=== PATIENT | female | born 1960 ===

== ENCOUNTER 2018-03-10 02:39 | Emergency (ER) | payer MEDICAID ==
[2018-03-10 02:39] VITALS: BMI 26.9
[2018-03-10 03:15] VITALS: TEMP 98.2
[2018-03-10 03:18] VITALS: RESP 18
[2018-03-10] MEDS ORDERED: Sodium Chloride 0.9% 1,000 ML IV STA (03:26)
[2018-03-10 03:46] LABS: BASO % 0.8 % (0.0-2.0); EOS # 0.1 K/uL (0.0-0.7); EOS % 2.9 % (0.0-4.0); HEMOGLOBIN 12.7 g/dL (12.0-16.0); LYMPH # 1.8 K/uL (1.0-4.3); LYMPH % 57.5 % (20.0-40.0); MEAN CORPUSCULAR HEMOGLOBIN 30.5 pg (27.0-31.0); MEAN PLATELET VOLUME 7.9 fl (7.2-11.7); MONO # 0.3 K/uL (0.0-0.8); MONO % 10.1 % (0.0-10.0); NEUT # 0.9 K/uL (1.8-7.0); NEUT % 28.7 % (50.0-75.0); NRBC % 0.2 % (0.0-0.0); RBC 4.17 Mil/uL (3.80-5.20); RED CELL DISTRIBUTION WIDTH 13.4 % (11.5-14.5); WHITE BLOOD COUNT 3.1 K/uL (4.8-10.8)
[2018-03-10 03:54] LABS: ALB/GLOB RATIO 1.3 (1.0-2.1); ALBUMIN 3.9 g/dL (3.5-5.0); ALT/SGPT 31 U/L (9-52); AST/SGOT 28 U/L (14-36); BLOOD UREA NITROGEN 13 mg/dl (7-17); CALCIUM 9.8 mg/dL (8.4-10.2); GFR AFRICAN-AMERICAN > 60; GFR NON-AFRICAN AMERICAN > 60; LIPASE 62 U/L (23-300)
--- NOTE | 2018-03-10 05:02 | ED PDOC ---
HPI: Chest Pain Time Seen by Provider: 03/10/18 03:10 Chief Complaint (Nursing): Chest Pain Chief Complaint (Provider): Chest Pain and Abdominal Pain History Per: Patient History/Exam Limitations: no limitations Onset/Duration Of Symptoms: Days (x 1) Associated Symptoms: Nausea Additional Complaint(s): 57 years old female with osteoporosis presents to the ED with complaints of chest pain and abdominal pain associated with headache, nausea and vomiting. Patient reports she awoke with abdominal pain that radiated to her chest. She admits experiencing 2 episodes of non-bloody/bilious vomiting. Patient denies any shortness of breath or cough. PMD:Any [place] Past Medical History Reviewed: Historical Data, Nursing Documentation, Vital Signs Vital Signs: Last Vital Signs Temp 98.2 F 03/10/18 03:12 Pulse 82 03/10/18 03:12 Resp 18 03/10/18 03:12 BP 137/56 L 03/10/18 03:12 Pulse Ox 100 03/10/18 05:17 - Medical History PMH: Hypercholesterolemia, Hyperlipidemia, Osteoporosis Denies: Chronic Kidney Disease - Surgical History Surgical History: No Surg Hx - Family History Family History: States: Unknown Family Hx - Social History Current smoker - smoking cessation education provided: No Alcohol: None Drugs: Denies - Immunization History Hx Tetanus Toxoid Vaccination: No Hx Influenza Vaccination: No Hx Pneumococcal Vaccination: No - Home Medications Home Medications: Ambulatory Orders Medication Instructions Recorded Alendronate [Fosamax] 1 tab PO WM 06/15/16 Calcium Carbonate/Vitamin D3 1 tab PO DAILY 06/15/16 [Oysco 500-Vit D3 200 Tablet] Simvastatin 40 mg PO HS 06/15/16 Acetaminophen with Codeine 1 tab PO Q6 PRN #20 tab 12/22/16 [Tylenol with Codeine No. 3 300 mg-30 mg] Clindamycin [Cleocin] 300 mg PO QID #28 cap 12/22/16 Esomeprazole Magnesium [Nexium] 20 mg PO QAM #30 ecc 03/10/18 Ondansetron ODT [Zofran ODT] 4 mg PO Q6 PRN #8 odt 03/10/18 - Allergies Allergies/Adverse Reactions: Allergies Allergy/AdvReac Type Severity Reaction Status Date / Time ampicillin Allergy RASH Verified 06/15/16 09:26 Penicillins Allergy RASH Verified 06/15/16 07:14 Review of Systems ROS Statement: Except As Marked, All Systems Reviewed And Found Negative Cardiovascular: Positive for: Chest Pain Respiratory: Negative for: Cough, Shortness of Breath Gastrointestinal: Positive for: Nausea, Vomiting (non bloody/bilious), Abdominal Pain Neurological: Positive for: Headache Physical Exam - Reviewed Nursing Documentation Reviewed: Yes Vital Signs Reviewed: Yes - Physical Exam Appears: Positive for: Non-toxic, No Acute Distress Skin: Positive for: Normal Color, Warm, Dry Eye Exam: Positive for: Normal appearance, EOMI, PERRL ENT: Positive for: Normal ENT Inspection Neck: Positive for: Normal, Painless ROM, Supple Cardiovascular/Chest: Positive for: Regular Rate, Rhythm. Negative for: Murmur Respiratory: Positive for: Normal Breath Sounds. Negative for: Respiratory Distress Gastrointestinal/Abdominal: Positive for: Tenderness (mild epigastric) Back: Positive for: Normal Inspection Extremity: Positive for: Normal ROM. Negative for: Pedal Edema, Deformity Neurologic/Psych: Positive for: Alert, Oriented - Laboratory Results Result Diagrams: 03/10/18 03:43 03/10/18 03:43 - ECG O2 Sat by Pulse Oximetry: 100 (RA) Pulse Ox Interpretation: Normal Medical Decision Making Medical Decision Making: Time: 325 Initial Impression: 57 years old female with abdominal pain, nausea and vomiting. Initial Plan: --EKG --CMP --Lipase --Troponin --CBC --Famotidine 20 mg IV --NaCl 1,000 ml IV --Reglan 10 mg IVPB Time: 0514 Labs reviewed and show no significant abnormality. Patient reports marked improvement of symptoms. Patient is stable for discharge and instructed to follow up with the clinic and Dr. Pratt in 2-3 days. Scribe Attestation: Documented by Tasia Davis, acting as a scribe for Saurabh Hernandez MD. Provider Scribe Attestation: All medical record entries made by the Scribe were at my direction and personally dictated by me. I have reviewed the chart and agree that the record accurately reflects my personal performance of the history, physical exam, medical decision making, and the department course for this patient. I have also personally directed, reviewed, and agree with the discharge instructions and disposition. Disposition - Clinical Impression Clinical Impression: Gastritis, GERD (gastroesophageal reflux disease) - Disposition Disposition: Routine/Home Disposition Time: 05:14 Condition: STABLE Prescriptions: Esomeprazole Magnesium [Nexium] 20 mg PO QAM #30 ecc Ondansetron ODT [Zofran ODT] 4 mg PO Q6 PRN #8 odt PRN Reason: Nausea/Vomiting Instructions: Gastritis, Acid Reflux (Gastroesophageal Reflux Disease) in Adults Forms: [facility] (Spanish) Print Language: NIUEAN
[2018-03-10 05:33] VITALS: BP 111/74; PULSE 59; O2SAT 96
--- NOTE | 2018-03-13 11:15 | CARD ---
APPROVED REPORT EKG Measurement Heart [id number] <Conclusion> Normal sinus rhythm Possible Left atrial enlargement Borderline ECG
== END 2018-03-10 05:39 | disposition home or self-care (01) ==
LOC: H.ER 02:39
DX: K21.9 Gastro-esophageal reflux disease without esophagitis (principal); K29.70 Gastritis, unspecified, without bleeding; E78.00 Pure hypercholesterolemia, unspecified; M81.0 Age-related osteoporosis without current pathological fracture; Z88.0 Allergy status to penicillin
CPT/HCPCS: 80053; 83690; 84484; 85025; 96365; 96375; 99283; J2765; J7040

== ENCOUNTER 2018-03-28 16:50 | Observation (INO) | payer MEDICAID ==
[2018-03-28 16:50] VITALS: BMI 26.9
[2018-03-28] MEDS ORDERED: Sodium Chloride 0.9% 1,000 ML IV STA (17:28)
--- NOTE | 2018-03-28 17:34 | ED PDOC ---
HPI: Chest Pain Time Seen by Provider: 03/28/18 17:02 Chief Complaint (Nursing): Chest Pain Chief Complaint (Provider): chest pain and abdominal pain History Per: Patient History/Exam Limitations: no limitations Onset/Duration Of Symptoms: Days (x1) Current Symptoms Are (Timing): Still Present Quality: "Pain" Associated Symptoms: Other (headache, abdominal pain) Additional Complaint(s): Sue Tomlinson is a 57 year old female, with a past medical history of hypercholesterolemia, who presents to the emergency department complaining of a mild frontal headache, chest pain and epigastric pain associated with generalized body weakness onset since last night. Patient states headache is not the worst in her life and reports pain radiates from her chest down to her abdomen. Patient reports similar abdominal pain in the past and is currently taking Bentyl. She denies any fever, chills, neck pain, vision changes, cough, congestion, runny nose, shortness of breath, dizziness, numbness or tingling, weakness, dysuria, nausea, vomit, or diarrhea. No further medical complaints. PMD: Ismael Carrillo Past Medical History Reviewed: Historical Data, Nursing Documentation, Vital Signs Vital Signs: Last Vital Signs Temp 98.0 F 03/28/18 16:58 Pulse 65 03/28/18 20:08 Resp 18 03/28/18 20:08 BP 116/73 03/28/18 20:08 Pulse Ox 100 03/28/18 20:08 - Medical History PMH: Hypercholesterolemia, Hyperlipidemia, Osteoporosis Denies: Chronic Kidney Disease - Surgical History Surgical History: No Surg Hx - Family History Family History: States: Unknown Family Hx - Immunization History Hx Tetanus Toxoid Vaccination: No Hx Influenza Vaccination: No Hx Pneumococcal Vaccination: No - Home Medications Home Medications: Ambulatory Orders Medication Instructions Recorded Alendronate [Fosamax] 1 tab PO WM 06/15/16 Calcium Carbonate/Vitamin D3 1 tab PO DAILY 06/15/16 [Oysco 500-Vit D3 200 Tablet] Simvastatin 40 mg PO HS 06/15/16 Acetaminophen with Codeine 1 tab PO Q6 PRN #20 tab 12/22/16 [Tylenol with Codeine No. 3 300 mg-30 mg] Clindamycin [Cleocin] 300 mg PO QID #28 cap 12/22/16 Esomeprazole Magnesium [Nexium] 20 mg PO QAM #30 ecc 05/19/18 Ondansetron ODT [Zofran ODT] 4 mg PO Q6 PRN #8 odt 03/10/18 - Allergies Allergies/Adverse Reactions: Allergies Allergy/AdvReac Type Severity Reaction Status Date / Time ampicillin Allergy RASH Verified 03/28/18 16:58 Penicillins Allergy RASH Verified 03/28/18 16:58 Review of Systems ROS Statement: Except As Marked, All Systems Reviewed And Found Negative Constitutional: Positive for: Weakness (generalized body). Negative for: Fever , Chills Eyes: Negative for: Vision Change ENT: Negative for: Nose Discharge, Nose Congestion Cardiovascular: Positive for: Chest Pain Respiratory: Negative for: Cough, Shortness of Breath Gastrointestinal: Positive for: Abdominal Pain (epigastric). Negative for: Nausea, Vomiting, Diarrhea Genitourinary Female: Negative for: Dysuria Musculoskeletal: Negative for: Neck Pain Neurological: Positive for: Headache (mild frontal). Negative for: Weakness, Numbness (or tingling), Dizziness Physical Exam - Reviewed Nursing Documentation Reviewed: Yes Vital Signs Reviewed: Yes - Physical Exam Appears: Positive for: Non-toxic Head Exam: Positive for: ATRAUMATIC, NORMOCEPHALIC Skin: Positive for: Normal Color, Warm, Dry Eye Exam: Positive for: Normal appearance, EOMI, PERRL ENT: Positive for: Normal ENT Inspection Neck: Positive for: Painless ROM, Supple Cardiovascular/Chest: Positive for: Regular Rate, Rhythm. Negative for: Murmur Respiratory: Positive for: Normal Breath Sounds. Negative for: Respiratory Distress Gastrointestinal/Abdominal: Positive for: Tenderness (mild epigastric) Back: Negative for: L CVA Tenderness, R CVA Tenderness, Vertebral Tenderness Extremity: Positive for: Normal ROM (upper and lower extremities). Negative for : Deformity, Swelling Neurologic/Psych: Positive for: Alert, Oriented. Negative for: Motor/Sensory Deficits - Laboratory Results Result Diagrams: 03/28/18 18:21 03/28/18 20:00 Interpretation Of Abn Labs: no acute - ECG ECG: Positive for: Interpreted By Me, Viewed By Me ECG Rhythm: Positive for: Normal QRS, Normal ST Segment, Sinus Rhythm O2 Sat by Pulse Oximetry: 99 (RA) Pulse Ox Interpretation: Normal - Radiology X-Ray: Interpreted by Me, Viewed By Me X-Ray Interpretation: No Acute Disease - CT Scan/US ct Other Rad Studies (CT/US): Read By Radiologist Other Rad Interpretation: no acute - Progress ED Course And Treament: 2055: Spoke with [facility] resident. Will admit tele obs. AAOx3. Will need further eval as pt. has risk factors for ACS. No pain currently. Medical Decision Making Medical Decision Making: Time: 17:02 Initial Impression: abdominal pain Initial Plan: --Head w/o contrast [CT] --EKG --CMP --Lipase --Troponin I --CBC w/ differential --PTT --PT --Chest portable [RAD] --Aspirin 325mg PO --Sodium Chloride 1,000 ml IV 1,000 mls/hr --Pepcid 20 mg IVP --Reevaluation 18:[address] FINDINGS: HEMORRHAGE: No intracranial hemorrhage. BRAIN: No mass effect or edema. No atrophy or chronic microvascular ischemic changes. VENTRICLES: Unremarkable. No hydrocephalus. CALVARIUM: Unremarkable. PARANASAL SINUSES: Unremarkable as visualized. No significant inflammatory changes. MASTOID AIR CELLS: Unremarkable as visualized. No inflammatory changes. OTHER FINDINGS: None. IMPRESSION: No acute intracranial hemorrhage. ----- Scribe Attestation: Documented by Eduard Hernández, acting as a scribe for Lucas Soto MD. Provider Scribe Attestation: All medical record entries made by the Scribe were at my direction and personally dictated by me. I have reviewed the chart and agree that the record accurately reflects my personal performance of the history, physical exam, medical decision making, and the department course for this patient. I have also personally directed, reviewed, and agree with the discharge instructions and disposition. Disposition - Clinical Impression Clinical Impression: Chest pain - Patient ED Disposition Is Patient to be Admitted: Yes Counseled Patient/Family Regarding: Studies Performed, Diagnosis - Disposition Disposition Time: 20:12 Condition: FAIR - Pt Status Changed To: Hospital Disposition Of: Observation - POA Present On Arrival: None
[2018-03-28] MEDS ORDERED: Famotidine 20mg/50ml 20 MG/50 ML BAG IVPB ONE ×2 (18:06→18:15)
[2018-03-28 18:41] LABS: BASO # 0.1 K/uL (0.0-0.2); BASO % 1.1 % (0.0-2.0); EOS % 0.9 % (0.0-4.0); HEMOGLOBIN 12.2 g/dL (12.0-16.0); LYMPH # 2.4 K/uL (1.0-4.3); LYMPH % 49.5 % (20.0-40.0); MEAN CELL VOLUME 89.2 fl (81.0-99.0); MEAN CORPUSCULAR HEMOGLOBIN 29.1 pg (27.0-31.0); MEAN CORPUSCULAR HGB CONC 32.6 g/dL (33.0-37.0); MEAN PLATELET VOLUME 8.9 fl (7.2-11.7); MONO # 0.4 K/uL (0.0-0.8); MONO % 8.8 % (0.0-10.0); NEUT # 1.9 K/uL (1.8-7.0); NEUT % 39.7 % (50.0-75.0); NRBC % 0.2 % (0.0-0.0); RBC 4.19 Mil/uL (3.80-5.20); RED CELL DISTRIBUTION WIDTH 13.8 % (11.5-14.5); WHITE BLOOD COUNT 4.8 K/uL (4.8-10.8)
--- NOTE | 2018-03-28 18:46 | CT ---
PROCEDURE: CT HEAD WITHOUT CONTRAST. HISTORY: Headache COMPARISON: No prior study available for comparison TECHNIQUE: Axial computed tomography images were obtained through the head/brain without intravenous contrast. Radiation dose: Total exam DLP = 617.19 mGy-cm. This CT exam was performed using one or more of the following dose reduction techniques: Automated exposure control, adjustment of the mA and/or kV according to patient size, and/or use of iterative reconstruction technique. FINDINGS: HEMORRHAGE: No intracranial hemorrhage. BRAIN: No mass effect or edema. No atrophy or chronic microvascular ischemic changes. VENTRICLES: Unremarkable. No hydrocephalus. CALVARIUM: Unremarkable. PARANASAL SINUSES: Unremarkable as visualized. No significant inflammatory changes. MASTOID AIR CELLS: Unremarkable as visualized. No inflammatory changes. OTHER FINDINGS: None. IMPRESSION: No acute intracranial hemorrhage.
[2018-03-28 18:50] LABS: PARTIAL THROMBOPLASTIN TIME 32.3 Seconds (25.6-37.1); PROTHROMBIN TIME 11.1 Seconds (9.8-13.1)
[2018-03-28 20:25] LABS: ALB/GLOB RATIO 1.1 (1.0-2.1); ALBUMIN 3.7 g/dL (3.5-5.0); ALT/SGPT 19 U/L (9-52); AST/SGOT 47 U/L (14-36); BLOOD UREA NITROGEN 12 mg/dl (7-17); CALCIUM 8.9 mg/dL (8.4-10.2); GFR AFRICAN-AMERICAN > 60; GFR NON-AFRICAN AMERICAN > 60; LIPASE 71 U/L (23-300)
[2018-03-28] MEDS ORDERED: Morphine 4 MG/ML VIAL ONE (21:08)
--- NOTE | 2018-03-28 21:40 | CP.PCM.HP ---
History of Present Illness - History of Present Illness History of Present Illness: 57 yr old F presents to ED with complaint of chest pain, headache and body weakness x 1 day. PMHx includes GERD and hyperlipidemia controlled without medication. Patient reports similar symptoms in the past with ED visit on . Chest pain is in proximal sternum radiating to epigastric area, 01/30, "pain ". Denies fever, chills, nausea, vomiting, diarrhea, one sided weakness or numbness, decreased appetite. Reports taking aspirin 81mg this morning which exacerbated her symptoms. Nothing alleviated her symptoms. She is tolerating PO diet, has normal urine output, denies dysuria or hematuria. Headache is frontal , intermittent, 03/01, she did not take anything to alleviate her headache. PMD: [facility], Dr. Carrillo (last visit 02/15/18) PMHx: GERD, hyperlipidemia (controlled without medication) SurgHx: x 2 FMHx: mother from liver cancer, father had CAD and first CT at age 60 SocHx: denies Etoh/tobacco or drugs Medications: Omeprazole 40mg PO QD, calcium 500mg PO BID Allergies: Penicillin, ampicillin (rash and syncope) ED course: BP 131/70 mmHg, HR 69, Resp 16, O2 sat 99% on room air, Temp 98.0 F -EKG: NSR at rate of 63 bpm, no significant ST-T changes -CBC: WBC 4.8. H/H 12.2/37.4, plts 255 -CMP: Na 139, K+ 4.4, Cl 108, HCO3 20, BUN/Cr 12/0.6, AST 47, ALT 19 -PT 11.1, PTT 32.3, INR 1.0 -troponin: < 0.0120 -lipase: 71 -CXR: preliminary : no active disease -Head CT: no ICH -ED tx: Aspirin 325mg PO once, Famotidine 20mg IV once, Morphine 4mg IV once, NS 1L bolus once Present on Admission - Present on Admission Any Indicators Present on Admission: No History of DVT/PE: No History of Uncontrolled Diabetes: No Urinary Catheter: No Decubitus Ulcer Present: No History Surgical Site Infection Following: None Review of Systems - Constitutional Constitutional: absent: Anorexia - EENT Eyes: absent: Change in Vision Ears: absent: Ear Discharge, Dizziness Nose/Mouth/Throat: absent: Nasal Congestion, Nasal Discharge, Sore Throat, Facial Pain - Cardiovascular Cardiovascular: Chest Pain at Rest. absent: Chest Pain with Activity, Dyspnea, Edema, Rapid Heart Rate, Syncope - Respiratory Respiratory: absent: Cough, Hemoptysis - Gastrointestinal Gastrointestinal: Heartburn. absent: Abdominal Pain, Constipation, Nausea, Vomiting - Genitourinary Genitourinary: absent: Dysuria, Hematuria - Musculoskeletal Musculoskeletal: Other (overall body weakness) - Neurological Neurological: absent: Confusion, Disequilibrium, Dizziness, Numbness - Psychiatric Psychiatric: absent: Homicidal Ideation, Suicidal Ideation - Endocrine Endocrine: absent: Polydipsia, Polyphagia, Polyuria - Hematologic/Lymphatic Hematologic: absent: Easy Bleeding, Easy Bruising Past Patient History - Past Medical History & Family History Past Medical History?: Yes - Past Social History Smoking Status: Never Smoked Alcohol: None Drugs: Denies Home Situation {Lives}: With Family Domestic Violence: Negative - CARDIAC Hx Hypercholesterolemia: Yes - PULMONARY Hx Respiratory Disorders: No - NEUROLOGICAL Hx Neurological Disorder: No - HEENT Hx HEENT Problems: No - RENAL Hx Chronic Kidney Disease: No - ENDOCRINE/METABOLIC Hx Endocrine Disorders: No - HEMATOLOGICAL/ONCOLOGICAL Hx Blood Disorders: No - INTEGUMENTARY Hx Dermatological Problems: No - MUSCULOSKELETAL/RHEUMATOLOGICAL Hx Osteoporosis: Yes - GENITOURINARY/GYNECOLOGICAL Hx Genitourinary Disorders: No - PSYCHIATRIC Hx Psychophysiologic Disorder: No Hx Substance Use: No - SURGICAL HISTORY Hx Surgeries: Yes Hx Section: Yes (x2) - ANESTHESIA Hx Anesthesia: Yes Hx Anesthesia Reactions: No Hx Malignant Hyperthermia: No Meds Allergies/Adverse Reactions: Allergies Allergy/AdvReac Type Severity Reaction Status Date / Time ampicillin Allergy RASH Verified 03/28/18 16:58 Penicillins Allergy RASH Verified 03/28/18 16:58 Physical Exam - Constitutional Appears: Well, Non-toxic, No Acute Distress - Head Exam Head Exam: ATRAUMATIC, NORMOCEPHALIC - Eye Exam Eye Exam: EOMI, PERRL - ENT Exam ENT Exam: Mucous Membranes Moist - Neck Exam Neck exam: Positive for: Full Rom. Negative for: Lymphadenopathy - Respiratory Exam Respiratory Exam: Clear to Auscultation Bilateral, NORMAL BREATHING PATTERN. absent: Rhonchi, Wheezes - Cardiovascular Exam Cardiovascular Exam: REGULAR RHYTHM, +S1, +S2 Additional comments: reproducible chest pain: proximal sternal area tender to palpation - GI/Abdominal Exam GI & Abdominal Exam: Normal Bowel Sounds, Soft. absent: Tenderness - Extremities Exam Extremities exam: Positive for: full ROM. Negative for: calf tenderness, joint swelling, pedal edema, tenderness - Back Exam Back exam: absent: CVA tenderness (L), CVA tenderness (R) - Neurological Exam Neurological exam: Alert, CN II-XII Intact (grossly), Oriented x3 - Psychiatric Exam Psychiatric exam: Normal Affect, Normal Mood - Skin Skin Exam: Dry, Intact, Normal Color, Warm Results - Vital Signs Recent Vital Signs: Last Vital Signs Temp 98.0 F 03/28/18 16:58 Pulse 65 03/28/18 20:08 Resp 18 03/28/18 20:08 BP 116/73 03/28/18 20:08 Pulse Ox 99 03/28/18 20:58 - Labs Result Diagrams: 03/28/18 18:21 03/28/18 20:00 Labs: Laboratory Results - last 24 hr 03/28/18 03/28/18 03/28/18 18:21 18:21 20:00 WBC 4.8 D RBC 4.19 Hgb 12.2 Hct 37.4 MCV 89.2 D MCH 29.1 MCHC 32.6 L RDW 13.8 Plt Count 255 MPV 8.9 Neut % (Auto) 39.7 L Lymph % (Auto) 49.5 H [place] % (Auto) 8.8 Eos % (Auto) 0.9 Baso % (Auto) 1.1 Neut # (Auto) 1.9 Lymph # (Auto) 2.4 [place] # (Auto) 0.4 Eos # (Auto) 0.0 Baso # (Auto) 0.1 PT 11.1 INR 1.0 APTT 32.3 Sodium 139 Potassium 4.4 Chloride 108 H Carbon Dioxide 20 L Anion Gap 15 BUN 12 Creatinine 0.6 L Est GFR ( Amer) > 60 Est GFR (Non-Af Amer) > 60 Random Glucose 87 Calcium 8.9 Total Bilirubin 0.6 AST 47 H D ALT 19 Alkaline Phosphatase 90 Troponin I < 0.0120 Total Protein 7.2 Albumin 3.7 Globulin 3.5 Albumin/Globulin Ratio 1.1 Lipase 71 Assessment & Plan - Assessment and Plan (Free Text) Assessment: 57 yr old F admitted for recurrent chest pain. 1. Chest pain -recurrent, rule out ACS vs GERD exacerbation vs costochondritis vs anxiety -EKG NSR, troponin negative, CBC/CMP lipase negative -admit to tele -f/u serial troponin -heart healthy diet 2. GERD -chronic -Pantoprazole 40mg PO QD 3. DVT prophylaxis -SCD's -Lovenox 40mg SC QD - Date & Time Date: 03/28/18 Time: 21:20
[2018-03-29] MEDS ORDERED: Pneumococcal 23-Valent Vaccine IM ONE (05:00)
[2018-03-29 08:06] VITALS: RESP 20; TEMP 97.6
[2018-03-29] MEDS ORDERED: Pantoprazole 40 mg EC Tab PO SCH (09:00)
[2018-03-29] MEDS ORDERED: Enoxaparin 40 mg Syringe SC SCH (09:00)
--- NOTE | 2018-03-29 09:12 | RAD ---
HISTORY: dyspnea COMPARISON: Chest radiograph dated 12/16/2014 FINDINGS: LUNGS: No active pulmonary disease. PLEURA: No significant pleural effusion identified, no pneumothorax apparent. CARDIOVASCULAR: Normal. OSSEOUS STRUCTURES: Unchanged. VISUALIZED UPPER ABDOMEN: Normal. OTHER FINDINGS: None. IMPRESSION: No active disease.
[2018-03-29 12:31] VITALS: BP 110/63; PULSE 62; O2SAT 99
--- NOTE | 2018-03-29 13:50 | CP.PCM.DIS ---
Provider - Provider Date of Admission: 03/28/18 20:56 Attending physician: Gege Gonsales MD Time Spent in preparation of Discharge (in minutes): 20 Hospital Course - Lab Results Lab Results: Most Recent Lab Values WBC 4.8 K/uL (4.8-10.8) D 03/28/18 18:21 RBC 4.19 Mil/uL (3.80-5.20) 03/28/18 18:21 Hgb 12.2 g/dL (12.0-16.0) 03/28/18 18:21 Hct 37.4 % (34.0-47.0) 03/28/18 18:21 MCV 89.2 fl (81.0-99.0) D 03/28/18 18:21 MCH 29.1 pg (27.0-31.0) 03/28/18 18:21 MCHC 32.6 g/dL (33.0-37.0) L 03/28/18 18:21 RDW 13.8 % (11.5-14.5) 03/28/18 18: Plt Count 255 K/uL (130-400) 03/28/18 18:21 MPV 8.9 fl (7.2-11.7) 03/28/18 18:21 Neut % (Auto) 39.7 % (50.0-75.0) L 03/28/18 18:21 Lymph % (Auto) 49.5 % (20.0-40.0) H 03/28/18 18:21 [place] % (Auto) 8.8 % (0.0-10.0) 03/28/18 18:21 Eos % (Auto) 0.9 % (0.0-4.0) 03/28/18 18:21 Baso % (Auto) 1.1 % (0.0-2.0) 03/28/18 18:21 Neut # (Auto) 1.9 K/uL (1.8-7.0) 03/28/18 18:21 Lymph # (Auto) 2.4 K/uL (1.0-4.3) 03/28/18 18:21 [place] # (Auto) 0.4 K/uL (0.0-0.8) 03/28/18 18:21 Eos # (Auto) 0.0 K/uL (0.0-0.7) 03/28/18 18:21 Baso # (Auto) 0.1 K/uL (0.0-0.2) 03/28/18 18:21 PT 11.1 Seconds (9.8-13.1) 03/28/18 18:21 INR 1.0 (0.9-1.2) 03/28/18 18:21 APTT 32.3 Seconds (25.6-37.1) 03/28/18 18:21 Sodium 139 mmol/l (132-148) 03/28/18 20:00 Potassium 4.4 MMOL/L (3.6-5.0) 03/28/18 20:00 Chloride 108 mmol/L (98-107) H 03/28/18 20:00 Carbon Dioxide 20 mmol/L (22-30) L 03/28/18 20:00 Anion Gap 15 (10-20) 03/28/18 20:00 BUN 12 mg/dl (7-17) 03/28/18 20:00 Creatinine 0.6 mg/dl (0.7-1.2) L 03/28/18 20:00 Est GFR ( Amer) > 60 03/28/18 20:00 Est GFR (Non-Af Amer) > 60 03/28/18 20:00 Random Glucose 87 mg/dL (65-105) 03/28/18 20:00 Calcium 8.9 mg/dL (8.4-10.2) 03/28/18 20:00 Total Bilirubin 0.6 mg/dl (0.2-1.3) 03/28/18 20:00 AST 47 U/L (14-36) H D 03/28/18 20:00 ALT 19 U/L (9-52) 03/28/18 20:00 Alkaline Phosphatase 90 U/L (38-126) 03/28/18 20:00 Troponin I < 0.0120 ng/mL (0.00-0.120) 03/29/18 05:00 Total Protein 7.2 G/DL (6.3-8.2) 03/28/18 20:00 Albumin 3.7 g/dL (3.5-5.0) 03/28/18 20:00 Globulin 3.5 gm/dL (2.2-3.9) 03/28/18 20:00 Albumin/Globulin Ratio 1.1 (1.0-2.1) 03/28/18 20:00 Lipase 71 U/L (23-300) 03/28/18 20:00 - Hospital Course Hospital Course: 57 YO female with PMH of HLD (diet controlled) and GERD was admitted for chest pain, r/o ACS. On exam, chest pain was likely 2/2 to GERD, ACS ruled out, all work up is negative; EKG no acute ST changes, vitals signs wnl, trops neg x 2, CT head wnl. Chest pain has resolved at this time. Pt d/c home with follow up in [facility] with Dr. Carrillo, 04/03/18 @ 3:40. Continue Meds: Continue Nexium PO daily (on a empty stomach, 20mins before meals) Discharge Exam - Head Exam Head Exam: ATRAUMATIC, NORMOCEPHALIC - Eye Exam Eye Exam: EOMI, Normal appearance - ENT Exam ENT Exam: Mucous Membranes Moist - Respiratory Exam Respiratory Exam: Clear to PA & Lateral, NORMAL BREATHING PATTERN. absent: Wheezes - Cardiovascular Exam Cardiovascular Exam: REGULAR RHYTHM, +S1, +S2 - GI/Abdominal Exam GI & Abdominal Exam: Normal Bowel Sounds, Soft. absent: Tenderness - Extremities Exam Extremities exam: full ROM, normal inspection - Back Exam Back exam: NORMAL INSPECTION - Neurological Exam Neurological exam: Alert, CN II-XII Intact, Oriented x3 - Psychiatric Exam Psychiatric exam: Normal Affect, Normal Mood - Skin Skin Exam: Dry, Intact, Normal Color, Warm Discharge Plan - Follow Up Plan Condition: FAIR Disposition: HOME/ ROUTINE Patient education suggested?: Yes Instructions: Chest Pain (DC) Additional Instructions: /Follow up in [facility] with Dr. Carrillo on 04/03/18 at 3:40pm Referrals: [facility] [Outside]
--- NOTE | 2018-03-29 17:20 | CARD ---
APPROVED REPORT EKG Measurement Heart [id number] <Conclusion> Normal sinus rhythm Possible Left atrial enlargement Borderline ECG
== END 2018-03-29 15:12 | disposition home or self-care (01) ==
LOC: H.ER 16:50 → H.ERHOLD 20:56 → H.TEL 23:01
PROVIDERS: ADMIT Family Medicine Geriatric Medicine; ATTEND Family Medicine Geriatric Medicine
DX: K21.9 Gastro-esophageal reflux disease without esophagitis (principal); E78.00 Pure hypercholesterolemia, unspecified; E78.5 Hyperlipidemia, unspecified; M81.0 Age-related osteoporosis without current pathological fracture; R07.9 Chest pain, unspecified; Z88.0 Allergy status to penicillin; Z23 Encounter for immunization
CPT/HCPCS: 36415; 70450; 71045; 80053; 83690; 84484; 85025; 85610; 85730; 90471; 90732; 93005; 96360; 96365; 99285; G0378; J1650; J2270; J7030

== ENCOUNTER 2018-04-04 00:24 | Emergency (ER) | payer MEDICAID ==
[2018-04-04 00:25] VITALS: BMI 26.9
[2018-04-04 00:49] VITALS: TEMP 97.8; O2SAT 100
[2018-04-04] MEDS ORDERED: Alum-Mag Hydrox-Simethicone Susp (30 mL) ONE (01:20)
[2018-04-04] MEDS: Alum-Mag Hydrox-Simethicone Susp (30 mL) PO STA (01:37)
--- NOTE | 2018-04-04 01:40 | ED PDOC ---
HPI: Abdomen Time Seen by Provider: 04/04/18 00:48 Chief Complaint (Nursing): Abdominal Pain Chief Complaint (Provider): Abdominal Pain History Per: Patient History/Exam Limitations: no limitations Onset/Duration Of Symptoms: Hrs (x1) Outside of [place] travel?: No Current Symptoms Are (Timing): Still Present Location Of Pain/Discomfort: Epigastric Associated Symptoms: Nausea, Chest Pain. denies: Vomiting Additional History Per: Prior Records Additional Complaint(s): 57 year old female presents to ED with complaints of abdominal pain x1 hour and has a past medical history of gastritis and GERD. Patient notes that she awoke with epigastric pain and chest discomfort. (+) nausea, (-) vomiting. Of note, patient was seen for the same complain on 03/10/18 as well as on 03/28/18 , for which she was admitted as chest pain OBS. Patient notes she is scheduled for an appointment at the clinic. PCP: Ismael Carrillo Past Medical History Reviewed: Historical Data, Nursing Documentation, Vital Signs Vital Signs: Last Vital Signs Temp 97.8 F 04/04/18 00:41 Pulse 77 04/04/18 00:41 Resp 18 04/04/18 00:41 BP 135/75 04/04/18 00:41 Pulse Ox 100 04/04/18 01:46 - Medical History PMH: Gastritis, GERD, Hypercholesterolemia, Hyperlipidemia, Osteoporosis Denies: No Chronic Diseases, Chronic Kidney Disease - Surgical History Surgical History: No Surg Hx - Family History Family History: States: Unknown Family Hx - Social History Current smoker - smoking cessation education provided: No Ex-Smoker (has not smoked in the last 12 months): No Alcohol: None Drugs: Denies - Immunization History Hx Tetanus Toxoid Vaccination: No Hx Influenza Vaccination: No Hx Pneumococcal Vaccination: No - Home Medications Home Medications: Ambulatory Orders Medication Instructions Recorded Esomeprazole Magnesium [Nexium] 20 mg PO QAM #30 ecc 03/10/18 Esomeprazole Magnesium [Nexium] 40 mg PO DAILY #28 ecc 04/04/18 - Allergies Allergies/Adverse Reactions: Allergies Allergy/AdvReac Type Severity Reaction Status Date / Time ampicillin Allergy RASH Verified 04/04/18 00:41 Penicillins Allergy RASH Verified 04/04/18 00:41 Review of Systems ROS Statement: Except As Marked, All Systems Reviewed And Found Negative Cardiovascular: Positive for: Chest Pain (chest discomfort) Gastrointestinal: Positive for: Nausea, Abdominal Pain (epigastric). Negative for: Vomiting Physical Exam - Reviewed Nursing Documentation Reviewed: Yes Vital Signs Reviewed: Yes - Physical Exam Appears: Positive for: Non-toxic, No Acute Distress Skin: Positive for: Normal Color, Warm, Dry Cardiovascular/Chest: Positive for: Regular Rate, Rhythm. Negative for: Murmur Respiratory: Positive for: Normal Breath Sounds. Negative for: Respiratory Distress Gastrointestinal/Abdominal: Positive for: Soft, Tenderness (epigastric tenderness) Neurologic/Psych: Positive for: Alert, Oriented. Negative for: Motor/Sensory Deficits - Laboratory Results Result Diagrams: 04/04/18 01:43 04/04/18 01:43 - ECG O2 Sat by Pulse Oximetry: 100 (RA) Pulse Ox Interpretation: Normal Medical Decision Making Medical Decision Makin Initial impression: 57 year old female with epigastric pain in setting of known GERD and gastritis Initial plan: * Labs * Lipase * UPreg * Maalox Plus 30mL PO * Protonix Inj 40mg IV * Zofran Inj 4mg IV * UA * Re-eval 0349 Upon re-evaluation patient notes improvement in symptoms. Labs reviewed: no clinically significant abnormalities. Patient confirms she has an appointment later today with PMD Dr. Carrillo in the clinic. Patient is stable for discharge home. Dx: GERD, gastritis Condition: improved Scribe Attestation: Documented by Myrna Bruce acting as a scribe for Saurabh Hernandez MD. Scribe Attestation: All medical record entries made by the Scribe were at my direction and personally dictated by me. I have reviewed the chart and agree that the record accurately reflects my personal performance of the history, physical exam, medical decision making, and the department course for this patient. I have also personally directed, reviewed, and agree with the discharge instructions and disposition. Disposition - Clinical Impression Clinical Impression: GERD (gastroesophageal reflux disease) - Disposition Referrals: Ismael Carrillo MD [Primary Care Provider] - Disposition Time: 03:45 Condition: IMPROVED Prescriptions: Esomeprazole Magnesium [Nexium] 40 mg PO DAILY #28 ecc Instructions: Acid Reflux (Gastroesophageal Reflux Disease) in Adults Forms: [employer] (Gambian) Print Language: SAMMARINESE
[2018-04-04 01:54] LABS: BASO % 0.8 % (0.0-2.0); EOS # 0.1 K/uL (0.0-0.7); EOS % 1.9 % (0.0-4.0); HEMOGLOBIN 12.8 g/dL (12.0-16.0); LYMPH # 1.6 K/uL (1.0-4.3); LYMPH % 40.6 % (20.0-40.0); MEAN CELL VOLUME 87.9 fl (81.0-99.0); MEAN CORPUSCULAR HEMOGLOBIN 29.5 pg (27.0-31.0); MEAN CORPUSCULAR HGB CONC 33.5 g/dL (33.0-37.0); MEAN PLATELET VOLUME 8.5 fl (7.2-11.7); MONO # 0.4 K/uL (0.0-0.8); MONO % 9.8 % (0.0-10.0); NEUT # 1.8 K/uL (1.8-7.0); NEUT % 46.9 % (50.0-75.0); NRBC % 0.1 % (0.0-0.0); RBC 4.33 Mil/uL (3.80-5.20); RED CELL DISTRIBUTION WIDTH 13.7 % (11.5-14.5); WHITE BLOOD COUNT 3.9 K/uL (4.8-10.8)
[2018-04-04 01:55] LABS: SQUAMOUS EPITHIAL < 1 /hpf (0-5); URINE BACTERIA RARE (<OCC); URINE BILIRUBIN NEGATIVE (NEGATIVE); URINE BLOOD NEGATIVE (NEGATIVE); URINE CLARITY CLEAR (Clear); URINE COLOR COLORLESS (YELLOW); URINE GLUCOSE (UA) NEG (Normal); URINE LEUKOCYTE ESTERASE NEG Leu/uL (Negative); URINE PROTEIN NEGATIVE (NEGATIVE); URINE UROBILINOGEN 0.2-1.0 mg/dL (0.2-1.0)
[2018-04-04 02:05] LABS: ALB/GLOB RATIO 1.3 (1.0-2.1); ALBUMIN 4.3 g/dL (3.5-5.0); ALT/SGPT 35 U/L (9-52); AST/SGOT 28 U/L (14-36); BLOOD UREA NITROGEN 17 mg/dl (7-17); GFR AFRICAN-AMERICAN > 60; GFR NON-AFRICAN AMERICAN > 60; LIPASE 74 U/L (23-300)
[2018-04-04 04:09] VITALS: BP 122/64; PULSE 75; RESP 17
== END 2018-04-04 04:16 | disposition home or self-care (01) ==
LOC: H.ER 00:24
DX: K21.9 Gastro-esophageal reflux disease without esophagitis (principal); E78.00 Pure hypercholesterolemia, unspecified; K29.70 Gastritis, unspecified, without bleeding; M81.0 Age-related osteoporosis without current pathological fracture; Z88.0 Allergy status to penicillin
CPT/HCPCS: 80053; 81003; 81025; 83690; 85025; 96374; 96375; 99284; C9113; J2405

== ENCOUNTER 2018-05-18 21:23 | Emergency (ER) | payer MEDICAID ==
[2018-05-18 21:23] VITALS: BMI 26.9
[2018-05-18 21:31] VITALS: RESP 16; O2SAT 100
--- NOTE | 2018-05-18 22:47 | ED PDOC ---
HPI: Headache Time Seen by Provider: 05/18/18 21:34 Chief Complaint (Nursing): Headache Chief Complaint (Provider): headache History Per: Patient History/Exam Limitations: no limitations Onset/Duration Of Symptoms: Days (x1), Worse Since (today) Current Symptoms Are (Timing): Still Present Associated Symptoms: denies: Photophobia, Nausea, Vomiting Additional Complaint(s): Sue Tomlinson is a 57 year old female, with a past medical history of hypercholesterolemia, who presents to the emergency department for evaluation of a gradual onset of posterior neck pain associated with headache to her temples which started yesterday but worst today. Patient states symptoms started during the day yesterday when she was cleaning her house. She took Advil earlier this morning but with mild improvement, pain is worse with movement of her head and with palpation. She denies any fever, chills, photosensitivity, nausea, vomiting, dizziness, worse headache of her life, no thunderclap headache, chest pain, shortness of breath, trauma or injuries. No further medical complaints. PMD: Ismael Carrillo Past Medical History Reviewed: Historical Data, Nursing Documentation, Vital Signs Vital Signs: Last Vital Signs Temp 98.8 F 05/18/18 21:29 Pulse 71 05/18/18 21:29 Resp 16 05/18/18 21:29 BP 145/61 05/18/18 21:29 Pulse Ox 100 05/18/18 21:29 - Medical History PMH: Gastritis, GERD, Hypercholesterolemia, Hyperlipidemia, Osteoporosis Denies: Chronic Kidney Disease - Family History Family History: States: Unknown Family Hx - Immunization History Hx Tetanus Toxoid Vaccination: No Hx Influenza Vaccination: No Hx Pneumococcal Vaccination: No - Home Medications Home Medications: Ambulatory Orders Medication Instructions Recorded Esomeprazole Magnesium [Nexium] 20 mg PO QAM #30 ecc 03/10/18 Esomeprazole Magnesium [Nexium] 40 mg PO DAILY #28 ecc 04/04/18 Cyclobenzaprine [Cyclobenzaprine 10 mg PO TID PRN #15 tab 05/18/18 HCl] Naproxen 500 mg PO BID PRN #20 tablet 05/18/18 - Allergies Allergies/Adverse Reactions: Allergies Allergy/AdvReac Type Severity Reaction Status Date / Time ampicillin Allergy RASH Verified 04/04/18 00:41 Penicillins Allergy RASH Verified 04/04/18 00:41 Review of Systems ROS Statement: Except As Marked, All Systems Reviewed And Found Negative Constitutional: Negative for: Fever, Chills Cardiovascular: Negative for: Chest Pain Respiratory: Negative for: Shortness of Breath Gastrointestinal: Negative for: Nausea, Vomiting Musculoskeletal: Positive for: Neck Pain (radiates to the back of the head) Neurological: Positive for: Headache. Negative for: Dizziness Physical Exam - Reviewed Nursing Documentation Reviewed: Yes Vital Signs Reviewed: Yes - Physical Exam Comments: GENERAL APPEARANCE: Patient is awake, alert, oriented x 3, in no acute distress. Patient is smiling and freely moving her neck. SKIN: Warm, dry; (-) cyanosis; (-) rash. HEAD: (-) scalp swelling or tenderness, (-) temporal artery tenderness. EYES: (-) conjunctival pallor, (-) scleral icterus. ENMT: (-) sinus tenderness; mucous membranes are moist. NECK: (+) paravertebral tenderness, (-) vertebral tenderness, (-) stiffness, (- ) meningismus, (-) lymphadenopathy. CHEST AND RESPIRATORY: (-) rales, (-) rhonchi, (-) wheezes; breath sounds equal bilaterally. HEART AND CARDIOVASCULAR: (-) irregularity; (-) murmur, (-) gallop. ABDOMEN AND GI: Soft; (-) tenderness. EXTREMITIES: (-) deformity. NEURO AND PSYCH: Mental status as above. 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 Strength and DTRs symmetric. - ECG O2 Sat by Pulse Oximetry: 100 (RA) Pulse Ox Interpretation: Normal Medical Decision Making Medical Decision Making: Previous medical records reviewed. Patient was seen here on 03/28/18 w/ complaints of headache, chest pain and abdominal pain. During that visit, a head CT was done and showed no acute abnormalities. Patient was kept in the Hospital for chest pain observation, and she had 2 negative troponins and had normal EKG. Time: 21:34 Initial Impression: headache Initial Plan: --Flexeril 10 mg PO --Tylenol 325 mg tab 975 mg PO --Cervical Spine AP & Lateral [RAD] --Reevaluation XR C spine : loss of normal cervical lordosis, +mild DJD, as read by PA. On re-evaluation, patient reports symptoms are improving, denies any dizziness, nausea or chest pain. Repeat VS P 57 BP 137/64. On exam, patient remains AAOx3, in no acute distress, she is smiling. Neck is supple, FROM, +mild paravertebral tenderness. Repeat neuro exam shows no focal findings. Diagnostic results d/w the patient in great detail. Diagnosis of muscle spasm of neck d/w the patient. Based on history, exam and diagnostic results, plan will be for outpatient follow up. Patient instructed to follow-up with the clinic in 1-2 days without fail. Advised to take medication as prescribed. Return to the emergency room at any time for any new or worsening symptoms. Patient states she fully agrees with and understands discharge instructions. States that she agrees with the plan and disposition. Verbalized and repeated discharge instructions and plan. I have given the patient opportunity to ask any additional questions. ----- Scribe Attestation: Documented by Eduard Hernández, acting as a scribe for Gaby Cr PA-C. Provider Scribe Attestation: All medical record entries made by the Scribe were at my direction and personally dictated by me. I have reviewed the chart and agree that the record accurately reflects my personal performance of the history, physical exam, medical decision making, and the department course for this patient. I have also personally directed, reviewed, and agree with the discharge instructions and disposition. Disposition - Clinical Impression Clinical Impression: Muscle spasms of neck - Patient ED Disposition Is Patient to be Admitted: No Counseled Patient/Family Regarding: Studies Performed, Diagnosis, Need For Followup, Rx Given - Disposition Disposition: Routine/Home Disposition Time: 23:30 Condition: STABLE Additional Instructions: Christian por dejarnos atenderlo hoy. Usted fue tratado por un espasmo muscular en el salima. La atencin mdica de emergencia que recibi hoy se dirigi a los sntomas agudos de presentacin. Si le prescribieron algn medicamento, por favor llnelo y d dre indicado. Juliana sntomas pueden tardar varios campbell en resolverse. Regrese al Departamento de Emergencia en cualquier momento si los s ntomas empeoran, no mejoran o si surge algn otro problema. Comunquese con tejeda mdico en la clnica en 2 campbell para vel nueva evaluacin y seguimiento. Lleve todos los documentos que recibi al momento del juan carlos junto con los medicamentos a tejeda visita de seguimiento. Nuestro tratamiento no puede reemplazar la atencin mdica en curso por parte de un proveedor de atencin primaria (PCP) fuera del departamento de emergencias. Christian por permitir que el equipo de [facility] [employer] sea parte de tejeda cuidado hoy. Si se hizo vel radiografa: un radilogo revisar la lectura del DE si se necesita algn cambio en el tratamiento, nos comunicaremos con usted. Prescriptions: Cyclobenzaprine [Cyclobenzaprine HCl] 10 mg PO TID PRN #15 tab PRN Reason: Muscle Spasm Naproxen 500 mg PO BID PRN #20 tablet PRN Reason: Pain, Moderate (4-7) Instructions: Muscle Spasms (DC) Forms: [employer] (Upper Sorbian) Print Language: SYRIAN - PA / BAND TACKER / Resident Statement /DO has reviewed & agrees with the documentation as recorded.
[2018-05-18 23:17] VITALS: BP 137/64; PULSE 57; TEMP 97.7
--- NOTE | 2018-05-19 09:33 | RAD ---
Date of service: 05/18/2018 PROCEDURE: Cervical Spine Radiographs. HISTORY: Pain. COMPARISON: None. FINDINGS: BONES: Straightening of the normal lordosis. No fracture. Dens Intact. DISC SPACES: Mild multilevel disc space narrowing. SOFT TISSUES: Normal. No prevertebral soft tissue swelling. OTHER FINDINGS: None. IMPRESSION: Straightening of the normal cervical lordosis may be related to positioning/ spasm. No acute fracture. Mild multilevel degenerative changes
== END 2018-05-18 23:41 | disposition home or self-care (01) ==
LOC: H.ER 21:23
DX: M62.838 Other muscle spasm (principal)

== ENCOUNTER 2018-08-08 18:38 | Emergency (ER) | payer MEDICAID ==
[2018-08-08 18:38] VITALS: BMI 26.9
[2018-08-08 18:47] VITALS: BP 137/71; PULSE 75; RESP 16; TEMP 98.5; O2SAT 99
[2018-08-08] MEDS: DiphenhydrAMINE 50 mg/ml Inj IM STA (19:00)
[2018-08-08] MEDS ORDERED: DiphenhydrAMINE 50 mg/ml Inj ONE (19:08)
--- NOTE | 2018-08-08 19:57 | ED PDOC ---
HPI: Skin/Bite Injury Time Seen by Provider: 08/08/18 18:56 Chief Complaint (Nursing): Abnormal Skin Integrity Chief Complaint (Provider): Rash History Per: Patient, Director Of Sports Medicine ([id number]) History/Exam Limitations: no limitations Onset/Duration Of Symptoms: Hrs (began at 1430) Current Symptoms Are (Timing): Still Present Additional Complaint(s): 57 year old female presents to the ED for evaluation of a rash. Patient reports that around 1430 today, she was eating rice, beans, and meat when she noticed a pruritic rash developed on her abdomen and arms. 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 PMD: Mo Talbot Past Medical History Reviewed: Historical Data, Nursing Documentation, Vital Signs Vital Signs: Last Vital Signs Temp 98.5 F 08/08/18 18:45 Pulse 75 08/08/18 18:45 Resp 16 08/08/18 18:45 BP 137/71 08/08/18 18:45 Pulse Ox 99 08/08/18 18:45 - Medical History PMH: Gastritis, GERD, Hypercholesterolemia, Hyperlipidemia, Osteoporosis Denies: Chronic Kidney Disease - Surgical History Surgical History: (x2) - Family History Family History: States: Unknown Family Hx - Social History Current smoker - smoking cessation education provided: No Alcohol: None Drugs: Denies - Immunization History Hx Tetanus Toxoid Vaccination: No Hx Influenza Vaccination: No Hx Pneumococcal Vaccination: No - Home Medications Home Medications: Ambulatory Orders Medication Instructions Recorded RX: Esomeprazole Magnesium [Nexium] 20 mg PO QAM #30 ecc 03/10/18 Esomeprazole Magnesium [Nexium] 40 mg PO DAILY #28 ecc 04/04/18 Cyclobenzaprine [Cyclobenzaprine 10 mg PO TID PRN #15 tab 05/18/18 HCl] RX: Naproxen 500 mg PO BID PRN #20 tablet 05/18/18 DiphenhydrAMINE [Benadryl] 1 - 2 cap PO Q6 PRN #15 cap 08/08/18 predniSONE [Prednisone] 40 mg PO DAILY #8 tab 08/08/18 - Allergies Allergies/Adverse Reactions: Allergies Allergy/AdvReac Type Severity Reaction Status Date / Time ampicillin Allergy RASH Verified 08/08/18 18:42 Penicillins Allergy RASH Verified 08/08/18 18:42 Review of Systems ROS Statement: Except As Marked, All Systems Reviewed And Found Negative Constitutional: Negative for: Fever ENT: Negative for: Throat Swelling Cardiovascular: Negative for: Chest Pain Respiratory: Negative for: Shortness of Breath Skin: Positive for: Rash (on abdomen and bilateral arms, pruritic) Physical Exam - Reviewed Nursing Documentation Reviewed: Yes Vital Signs Reviewed: Yes - Physical Exam Appears: Positive for: No Acute Distress (speaking in full sentences) Skin: Positive for: Rash (scattered erythematous macuole papules with blanching to upper abdomen extending to chest and anterior ac fossa) Eye Exam: Positive for: Normal appearance, EOMI, PERRL ENT: Positive for: Normal ENT Inspection. Negative for: Tonsillar Swelling Cardiovascular/Chest: Positive for: Regular Rate, Rhythm Respiratory: Positive for: Normal Breath Sounds. Negative for: Accessory Muscle Use, Wheezing, Respiratory Distress Neurologic/Psych: Positive for: Alert, Oriented (x3) - ECG O2 Sat by Pulse Oximetry: 99 (RA) Pulse Ox Interpretation: Normal - Progress ED Course And Treament: On re-evaluation, pt. reports good relief of itching. Denies SOB, throat swelling. Medical Decision Making Medical Decision Making: Time: 1855 Initial Impression: rash Initial Plan: --Bendaryl 25mg IM --Prednisone 40mg PO Scribe Attestation: Documented by Lindy Gatica, acting as a scribe for Abisai Alvarado PA-C. Provider Scribe Attestation: All medical record entries made by the Scribe were at my direction and personally dictated by me. I have reviewed the chart and agree that the record accurately reflects my personal performance of the history, physical exam, medical decision making, and the department course for this patient. I have also personally directed, reviewed, and agree with the discharge instructions and disposition. Disposition - Clinical Impression Clinical Impression: Rash - Patient ED Disposition Is Patient to be Admitted: No - Disposition Referrals: [facility] [Outside] Disposition: Routine/Home Disposition Time: 18:59 Condition: STABLE Additional Instructions: LUKE ADEN, thank you for letting us take care of you today. Your provider was Loan Richards MD and you were treated for RASH. The emergency medical care you received today was directed at your acute symptoms. If you were prescribed any medication, please fill it and take as directed. It may take several days for your symptoms to resolve. Return to the Emergency Department if your symptoms worsen, do not improve, or if you have any other problems. Please contact your doctor or call one of the physicians/clinics you have been referred to that are listed on the Patient Visit Information form that is included in your discharge packet. Bring any paperwork you were given at discharge with you along with any medications you are taking to your follow up visit. Our treatment cannot replace ongoing medical care by a primary care provider outside of the emergency department. Thank you for allowing the [facility] team to be part of your care today. If you had an X-Ray or CT scan: A Radiologist will review the ED reading if any change in treatment is needed we will contact you. If you had a blood, urine, or wound culture: It will take several days for the results, if any change in treatment is needed we will contact you. If you had an STI test: It will take 48 hours for the results. Please call after 1 week if you have not heard back. Prescriptions: DiphenhydrAMINE [Benadryl] 1 - 2 cap PO Q6 PRN #15 cap PRN Reason: itching or rash predniSONE [Prednisone] 40 mg PO DAILY #8 tab Instructions: Skin Rash (DC) Forms: [employer] (Bulgarian) Print Language: KOSOVAN
== END 2018-08-08 19:37 | disposition home or self-care (01) ==
LOC: H.ER 18:38
DX: R21 Rash and other nonspecific skin eruption (principal); E78.00 Pure hypercholesterolemia, unspecified; Z88.0 Allergy status to penicillin
CPT/HCPCS: 96372; 99282; J1200

== ENCOUNTER 2018-08-22 21:31 | Emergency (ER) | payer MEDICAID ==
[2018-08-22 21:31] VITALS: BMI 26.9
[2018-08-22 21:37] VITALS: BP 138/71; PULSE 73; RESP 17; TEMP 98.2; O2SAT 98
[2018-08-22] MEDS ORDERED: DiphenhydrAMINE 50 mg/ml Inj IVP STA (22:21)
[2018-08-22] MEDS ORDERED: Sodium Chloride 0.9% 1,000 ML IV STA (22:22)
--- NOTE | 2018-08-22 22:41 | ED PDOC ---
HPI: Headache Time Seen by Provider: 08/22/18 21:51 Chief Complaint (Nursing): Headache Chief Complaint (Provider): headache History Per: Patient Onset/Duration Of Symptoms: Days (2), Waxing/Waning, Worse Since (today) Quality: Aching, Pressure, "Pain" Associated Symptoms: denies: Photophobia, Blurred Vision, Nausea, Vomiting, Extremity Weakness Additional Complaint(s): Seen in this ER in the past for similar headache PMD [facility] Past Medical History Reviewed: Historical Data, Nursing Documentation, Vital Signs Vital Signs: Last Vital Signs Temp 98.2 F 08/22/18 21:33 Pulse 73 08/22/18 21:33 Resp 17 08/22/18 21:33 BP 138/71 08/22/18 21:33 Pulse Ox 98 08/22/18 21:33 - Medical History PMH: Gastritis, GERD, Hypercholesterolemia, Hyperlipidemia, Osteoporosis Denies: Chronic Kidney Disease - Surgical History Surgical History: (x2) - Family History Family History: States: Unknown Family Hx - Social History Current smoker - smoking cessation education provided: No Alcohol: None Drugs: Denies - Immunization History Hx Tetanus Toxoid Vaccination: No Hx Influenza Vaccination: No Hx Pneumococcal Vaccination: No - Home Medications Home Medications: Ambulatory Orders Medication Instructions Recorded Esomeprazole Magnesium [Nexium] 20 mg PO QAM #30 ecc 03/10/18 Esomeprazole Magnesium [Nexium] 40 mg PO DAILY #28 ecc 04/04/18 Cyclobenzaprine [Cyclobenzaprine 10 mg PO TID PRN #15 tab 05/18/18 HCl] Naproxen 500 mg PO BID PRN #20 tablet 05/18/18 DiphenhydrAMINE [Benadryl] 1 - 2 cap PO Q6 PRN #15 cap 08/08/18 predniSONE [Prednisone] 40 mg PO DAILY #8 tab 08/08/18 - Allergies Allergies/Adverse Reactions: Allergies Allergy/AdvReac Type Severity Reaction Status Date / Time ampicillin Allergy RASH Verified 08/22/18 21:37 Penicillins Allergy RASH Verified 08/22/18 21:37 Review of Systems ROS Statement: Except As Marked, All Systems Reviewed And Found Negative (and as per HPI) Musculoskeletal: Negative for: Neck Pain Neurological: Positive for: Headache. Negative for: Weakness, Numbness, Incoordination, Change in Speech, Confusion, Seizures, Dizziness Physical Exam - Reviewed Nursing Documentation Reviewed: Yes Vital Signs Reviewed: Yes - Physical Exam Appears: Positive for: Non-toxic, In Acute Distress (mild painful) Head Exam: Positive for: ATRAUMATIC, NORMOCEPHALIC Skin: Positive for: Warm, Dry Eye Exam: Positive for: EOMI, PERRL ENT: Positive for: Pharynx Is (clear). Negative for: Pharyngeal Erythema, Tonsillar Exudate Neck: Positive for: Painless ROM, Supple. Negative for: Pain On Movement Of Neck Cardiovascular/Chest: Positive for: Regular Rate, Rhythm, Chest Non Tender. Negative for: Murmur Respiratory: Positive for: Normal Breath Sounds. Negative for: Wheezing, Respiratory Distress Gastrointestinal/Abdominal: Positive for: Soft. Negative for: Tenderness Back: Positive for: Normal Inspection. Negative for: Decreased ROM Extremity: Positive for: Normal ROM. Negative for: Deformity Lymphatic: Negative for: Adenopathy Neurologic/Psych: Positive for: Alert. Negative for: Motor/Sensory Deficits - ECG O2 Sat by Pulse Oximetry: 98 Medical Decision Making Medical Decision Makin Patient care endorsed from provider to Dr. Santiago pending labs and reassessment. Disposition - Clinical Impression Clinical Impression: Headache - Disposition Disposition: Transfer of Care Disposition Time: 23:00 Condition: STABLE Patient Signed Over To: Claudia Santiago Handoff Comments: Pending ER workup, reasessment and final ER disposition
[2018-08-22] MEDS ORDERED: DiphenhydrAMINE 50 mg/ml Inj ONE (22:59)
--- NOTE | 2018-08-22 23:08 | ED PDOC ---
- Laboratory Results Result Diagrams: 08/22/18 22:54 08/22/18 22:54 - ECG O2 Sat by Pulse Oximetry: 98 Medical Decision Making Medical Decision Makin Patient care endorsed from Dr. Richards to this provider pending labs and reassessment. 0030 Labs reviewed with no clinically significant abnormalities. pt awake alert stable gait in no distress stable for dc Scribe Attestation: Documented by Lindy Gatica, acting as a scribe for Claudia Santiago MD. Provider Scribe Attestation: All medical record entries made by the Scribe were at my direction and personally dictated by me. I have reviewed the chart and agree that the record accurately reflects my personal performance of the history, physical exam, medical decision making, and the department course for this patient. I have also personally directed, reviewed, and agree with the discharge instructions and disposition. Disposition - Clinical Impression Clinical Impression: Headache - POA Present On Arrival: None - Disposition Disposition: Routine/Home Disposition Time: 00:45 Condition: IMPROVED Additional Instructions: follow up with the clinic in 1-2 days return to the ED With any worsening or concerning symptoms Prescriptions: Ibuprofen [Motrin] 600 mg PO Q6H PRN #20 tab PRN Reason: Pain, Moderate (4-7) Instructions: Migraine Headache (DC) Forms: [employer] (Marshallese) Print Language: SWAZI
[2018-08-22 23:22] LABS: BASO % 0.7 % (0.0-2.0); EOS # 0.1 K/uL (0.0-0.7); EOS % 1.8 % (0.0-4.0); HEMOGLOBIN 11.9 g/dL (12.0-16.0); LYMPH # 2.4 K/uL (1.0-4.3); LYMPH % 55.6 % (20.0-40.0); MEAN CELL VOLUME 89.4 fl (81.0-99.0); MEAN CORPUSCULAR HEMOGLOBIN 29.5 pg (27.0-31.0); MEAN PLATELET VOLUME 7.7 fl (7.2-11.7); MONO # 0.3 K/uL (0.0-0.8); MONO % 6.6 % (0.0-10.0); NEUT # 1.5 K/uL (1.8-7.0); NEUT % 35.3 % (50.0-75.0); NRBC % 0.1 % (0.0-0.0); RBC 4.05 Mil/uL (3.80-5.20); RED CELL DISTRIBUTION WIDTH 13.6 % (11.5-14.5); WHITE BLOOD COUNT 4.4 K/uL (4.8-10.8)
[2018-08-22 23:32] LABS: ALB/GLOB RATIO 1.2 (1.0-2.1); ALBUMIN 3.8 g/dL (3.5-5.0); ALT/SGPT 42 U/L (9-52); AST/SGOT 45 U/L (14-36); BLOOD UREA NITROGEN 13 mg/dl (7-17); CALCIUM 9.2 mg/dL (8.4-10.2); GFR NON-AFRICAN AMERICAN > 60
== END 2018-08-23 00:47 | disposition home or self-care (01) ==
LOC: H.ER 21:31
DX: R51 Headache (principal)
CPT/HCPCS: 80053; 83735; 84100; 85025; 96374; 96375; 99284; J1200; J1885; J2765; J7030

== ENCOUNTER 2018-08-27 10:30 | Observation (INO) | payer MEDICAID ==
[2018-08-27 10:37] VITALS: BMI 32.6
[2018-08-27 11:56] LABS: BASO % 0.9 % (0.0-2.0); EOS # 0.1 K/uL (0.0-0.7); EOS % 1.3 % (0.0-4.0); HEMOGLOBIN 12.6 g/dL (12.0-16.0); MEAN CELL VOLUME 92.4 fl (81.0-99.0); MEAN CORPUSCULAR HEMOGLOBIN 29.2 pg (27.0-31.0); MEAN CORPUSCULAR HGB CONC 31.6 g/dL (33.0-37.0); MEAN PLATELET VOLUME 8.2 fl (7.2-11.7); MONO # 0.3 K/uL (0.0-0.8); MONO % 6.4 % (0.0-10.0); NEUT # 2.5 K/uL (1.8-7.0); NEUT % 50.4 % (50.0-75.0); NRBC % 0.3 % (0.0-0.0); RBC 4.33 Mil/uL (3.80-5.20); RED CELL DISTRIBUTION WIDTH 13.9 % (11.5-14.5); WHITE BLOOD COUNT 4.9 K/uL (4.8-10.8)
[2018-08-27 12:34] LABS: ALB/GLOB RATIO 1.3 (1.0-2.1); ALBUMIN 4.4 g/dL (3.5-5.0); ALT/SGPT 33 U/L (9-52); AST/SGOT 32 U/L (14-36); BLOOD UREA NITROGEN 14 mg/dl (7-17); CALCIUM 9.5 mg/dL (8.4-10.2); GFR NON-AFRICAN AMERICAN > 60; LIPASE 77 U/L (23-300)
--- NOTE | 2018-08-27 14:11 | US ---
Date of service: 08/27/2018 HISTORY: RUQ US pain radiating to shoulder/back COMPARISON: Comparison is made to the previous study dated 06/28/2016 TECHNIQUE: Sonographic evaluation of the right upper quadrant of the abdomen. FINDINGS: LIVER: Measures 16.1 cm in length. Heterogeneous mildly echogenic echogenicity of the liver parenchyma. No mass. No intrahepatic bile duct dilatation. GALLBLADDER: Unremarkable. No gallstones. COMMON BILE DUCT: Measures 3.8 mm. No stones. No dilatation. PANCREAS: Unremarkable as visualized. No mass. No ductal dilatation. RIGHT KIDNEY: Measures 9.4 x 6 x 3.7 cm in length. Normal echogenicity. No calculus, mass, or hydronephrosis. AORTA: No aneurysmal dilatation. IVC: Unremarkable. OTHER FINDINGS: None . IMPRESSION: No evidence of cholelithiasis or acute cholecystitis. Slightly heterogeneous mildly echogenic liver.
--- NOTE | 2018-08-27 14:39 | RAD ---
Date of service: 08/27/2018 HISTORY: chest pain COMPARISON: Chest radiograph 03/28/2018. TECHNIQUE: Chest PA and lateral FINDINGS: LUNGS: No active pulmonary disease. PLEURA: No significant pleural effusion identified. No pneumothorax apparent. CARDIOVASCULAR: No aortic atherosclerotic calcification present. Normal cardiac size. No pulmonary vascular congestion. OSSEOUS STRUCTURES: No significant abnormalities. VISUALIZED UPPER ABDOMEN: Normal. OTHER FINDINGS: None. IMPRESSION: No interval acute cardiopulmonary disease appreciated.
--- NOTE | 2018-08-27 15:23 | ED PDOC ---
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 States different than past pain thought to be GERD. Denies fever, cough, edema, orthopnea or syncope. Past Medical History Reviewed: Historical Data, Nursing Documentation, Vital Signs Vital Signs: Last Vital Signs Temp 97.9 F 08/27/18 10:37 Pulse 74 08/27/18 11:08 Resp 18 08/27/18 10:37 BP 106/71 08/27/18 10:37 Pulse Ox 98 08/27/18 10:37 - Medical History PMH: Gastritis, GERD, Hypercholesterolemia, Hyperlipidemia, Osteoporosis Denies: Chronic Kidney Disease - Surgical History Surgical History: (x2) - Family History Family History: States: Unknown Family Hx - Living Arrangements Living Arrangements: With Family - Social History Current smoker - smoking cessation education provided: No - Immunization History Hx Tetanus Toxoid Vaccination: No Hx Influenza Vaccination: No Hx Pneumococcal Vaccination: No - Home Medications Home Medications: Ambulatory Orders Medication Instructions Recorded Ibuprofen [Motrin] 600 mg PO Q6H PRN #20 tab 08/23/18 Fexofenadine HCl [Erika NF] 180 mg PO DAILY 08/27/18 Omeprazole 40 mg PO DAILY 08/27/18 - Allergies Allergies/Adverse Reactions: Allergies Allergy/AdvReac Type Severity Reaction Status Date / Time ampicillin Allergy RASH Verified 08/22/18 21:37 Penicillins Allergy RASH Verified 08/22/18 21:37 Review of Systems ROS Statement: Except As Marked, All Systems Reviewed And Found Negative Constitutional: Negative for: Fever Cardiovascular: Positive for: Chest Pain, Light Headedness. Negative for: Orthopnea, Edema Respiratory: Negative for: Shortness of Breath Gastrointestinal: Positive for: Nausea, Abdominal Pain Genitourinary Female: Negative for: Dysuria, Frequency Musculoskeletal: Positive for: Neck Pain Neurological: Positive for: Headache. Negative for: Weakness, Numbness Psych: Negative for: Suicidal ideation Physical Exam - Reviewed Nursing Documentation Reviewed: Yes Vital Signs Reviewed: Yes - Physical Exam Appears: Positive for: Well, Non-toxic, No Acute Distress Head Exam: Positive for: ATRAUMATIC, NORMAL INSPECTION, NORMOCEPHALIC Skin: Positive for: Normal Color, Warm, DRY Eye Exam: Positive for: EOMI, Normal appearance, PERRL ENT: Positive for: Normal ENT Inspection Neck: Positive for: Normal, Painless ROM Cardiovascular/Chest: Positive for: Regular Rate, Rhythm Respiratory: Positive for: CNT, Normal Breath Sounds Gastrointestinal/Abdominal: Positive for: Soft, Tenderness (mild epigastric tenderness). Negative for: Guarding Back: Positive for: Normal Inspection Extremity: Positive for: Normal ROM Neurologic/Psych: Positive for: Alert, Oriented - Laboratory Results Result Diagrams: 08/27/18 11:50 08/27/18 11:50 - ECG O2 Sat by Pulse Oximetry: 98 Medical Decision Making Medical Decision Making: prior charts reviewed admitted 04/09 for chest pain thought to be GERD but no dynamic testing or echo noted Visit 08/22 for headache, states headache improved, denies focal weakness or change vision/speech US RUQ ordered - prelim no gallstones, normal aorta tylenol ordered for pain ASA and pepcid ordered Admit obs hospitalist Disposition - Clinical Impression Clinical Impression: Acute chest pain - Patient ED Disposition Is Patient to be Admitted: Yes Counseled Patient/Family Regarding: Studies Performed, Diagnosis, Need For Followup - Disposition Disposition Time: 14:30 Condition: STABLE - Pt Status Changed To: Hospital Disposition Of: Observation - POA Present On Arrival: None
--- NOTE | 2018-08-27 16:31 | CP.PCM.HP ---
<Leoncio Perez - Last Filed: 08/27/18 18:44> History of Present Illness - History of Present Illness History of Present Illness: CC: chest pain 57 y/o female with PMHx of GERD, HLD, and Migraines headache, patient is a poor historian and she reports c/o midsternal dull chest pain that started this morning approximately at 6 AM, with radiation to the neck and back, 05/01 in [facility], patient states that the pain was increased with some movements, patient reports that the pain started while she was doing her activities at home, denies nausea, SOB, palpitations, cough, fever or other symptoms in association with the pain. Patient reports she decided to come to the ED at 9AM when the pain did not get relief after taking omeprazole at home. In the ED patient states she received acetaminophen for pain and that helped with the pain. Patient denies any chest pain, palpitations, cough, SOB, fever, chills, N/V, abdominal pain at this time. MR Chart Reviewed: shows previous admission for recurrence atypical chest pain in March with final impression consistent with pain due to GERD. ROS: 10 point review of system negative except above PMD: Dr. Carrillo at [facility] PMHx: GERD, hyperlipidemia (patient reports is under controlled without medication), Migraines headaches. Surg Hx: x 2 FMHx: Mother of liver disease, father had CAD and first [place] at age 70s as pe r patient ( Father is alive 82 Y/O) SocHx: Denies Etoh/Tobacco/Rec drugs Medications: Omeprazole 40mg PO QD, Ibuprofen for pain PRN Allergies: Penicillin (rash and syncope) ED course: VS stable. Acetaminophen ordered for pain Pedcid and aspirin ordered. CXR shows no acute disease process. US abdm: unramarkable EKG NSR Labs: Troponin I 1st negative. Present on Admission - Present on Admission Any Indicators Present on Admission: No History of DVT/PE: No History of Uncontrolled Diabetes: No Urinary Catheter: No Decubitus Ulcer Present: No Past Patient History - Past Medical History & Family History Past Medical History?: Yes - Past Social History Smoking Status: Never Smoked - CARDIAC Hx Hypercholesterolemia: Yes - PULMONARY Hx Respiratory Disorders: No - NEUROLOGICAL Hx Neurological Disorder: No - HEENT Hx HEENT Problems: No - RENAL Hx Chronic Kidney Disease: No - ENDOCRINE/METABOLIC Hx Endocrine Disorders: No - HEMATOLOGICAL/ONCOLOGICAL Hx Blood Disorders: No - INTEGUMENTARY Hx Dermatological Problems: No - MUSCULOSKELETAL/RHEUMATOLOGICAL Hx Osteoporosis: Yes - GASTROINTESTINAL Hx Gastritis: Yes - GENITOURINARY/GYNECOLOGICAL Hx Genitourinary Disorders: No - PSYCHIATRIC Hx Psychophysiologic Disorder: No Hx Substance Use: No - SURGICAL HISTORY Hx Surgeries: Yes Hx Section: Yes (x2) - ANESTHESIA Hx Anesthesia: Yes Hx Anesthesia Reactions: No Hx Malignant Hyperthermia: No Meds Allergies/Adverse Reactions: Allergies Allergy/AdvReac Type Severity Reaction Status Date / Time ampicillin Allergy RASH Verified 08/22/18 21:37 Penicillins Allergy RASH Verified 08/22/18 21:37 Physical Exam - Constitutional Appears: No Acute Distress - Head Exam Head Exam: ATRAUMATIC, NORMOCEPHALIC - Eye Exam Eye Exam: EOMI, PERRL - ENT Exam ENT Exam: Mucous Membranes Moist - Neck Exam Neck exam: Positive for: Full Rom, Normal Inspection - Respiratory Exam Respiratory Exam: Clear to Auscultation Bilateral. absent: Wheezes - Cardiovascular Exam Cardiovascular Exam: RRR, +S1, +S2 - GI/Abdominal Exam GI & Abdominal Exam: Normal Bowel Sounds, Soft, Tenderness (there is mild te nderness to deep palpation of epigastric area). absent: Mass - Extremities Exam Extremities exam: Negative for: pedal edema - Neurological Exam Neurological exam: Alert, CN II-XII Intact, Oriented x3 - Psychiatric Exam Psychiatric exam: Normal Affect - Skin Skin Exam: Normal Color, Warm Results - Vital Signs Recent Vital Signs: Last Vital Signs Temp 97.9 F 08/27/18 10:37 Pulse 74 08/27/18 11:08 Resp 18 08/27/18 10:37 BP 106/71 08/27/18 10:37 Pulse Ox 98 08/27/18 15:28 - Labs Result Diagrams: 08/27/18 11:50 08/27/18 11:50 Labs: Laboratory Results - last 24 hr 08/27/18 08/27/18 11:50 11:50 WBC 4.9 RBC 4.33 Hgb 12.6 Hct 40.0 MCV 92.4 D MCH 29.2 MCHC 31.6 L RDW 13.9 Plt Count 289 MPV 8.2 Neut % (Auto) 50.4 Lymph % (Auto) 41.0 H [place] % (Auto) 6.4 Eos % (Auto) 1.3 Baso % (Auto) 0.9 Neut # (Auto) 2.5 Lymph # (Auto) 2.0 [place] # (Auto) 0.3 Eos # (Auto) 0.1 Baso # (Auto) 0.0 Sodium 140 Potassium 4.8 Chloride 107 Carbon Dioxide 22 Anion Gap 16 BUN 14 Creatinine 0.6 L Est GFR ( Amer) > 60 Est GFR (Non-Af Amer) > 60 Random Glucose 91 Calcium 9.5 Total Bilirubin 0.4 AST 32 ALT 33 Alkaline Phosphatase 89 Troponin I < 0.0120 Total Protein 7.9 Albumin 4.4 Globulin 3.4 Albumin/Globulin Ratio 1.3 Lipase 77 Assessment & Plan - Assessment and Plan (Free Text) Assessment: 57 y/o female with PMHx of GERD, HLD, and Migraines headache, admitted for atypical chest pain for obs and evaluation. Patient is hemodinamically stable and with no c/o chest pain at time of encounter. Plan: 1.Atypical chest pain -Admit to Telemetry monitoring -Cardiac diet -EKG done: NSR, repeat EKG in AM -Labs: Troponin I 1st set negative, c/w serial troponin Q6h x2 -EKG in AM -Lipid panel, patient reports hx of HLD -Cardiac Consult, Dr Wilmer Angel -Aspirn 81 PO QD -Lipitor 20 PO QD - EChocard 2.GERD -Chronic hx -Continue with Omeprazole 40 PO QD 3. Migraines NAJERA -Acetaminophen 650 PO Q6h PRN pain DVT Prophylaxis -Lovenox 40 SC QD Full code status <Lionel Antunez - Last Filed: 08/27/18 19:13> Results - Vital Signs Recent Vital Signs: Last Vital Signs Temp 97.9 F 08/27/18 10:37 Pulse 74 08/27/18 11:08 Resp 18 08/27/18 10:37 BP 106/71 08/27/18 10:37 Pulse Ox 98 08/27/18 15:28 - Labs Result Diagrams: 08/27/18 11:50 08/27/18 11:50 Labs: Laboratory Results - last 24 hr 08/27/18 08/27/18 11:50 11:50 WBC 4.9 RBC 4.33 Hgb 12.6 Hct 40.0 MCV 92.4 D MCH 29.2 MCHC 31.6 L RDW 13.9 Plt Count 289 MPV 8.2 Neut % (Auto) 50.4 Lymph % (Auto) 41.0 H [place] % (Auto) 6.4 Eos % (Auto) 1.3 Baso % (Auto) 0.9 Neut # (Auto) 2.5 Lymph # (Auto) 2.0 [place] # (Auto) 0.3 Eos # (Auto) 0.1 Baso # (Auto) 0.0 Sodium 140 Potassium 4.8 Chloride 107 Carbon Dioxide 22 Anion Gap 16 BUN 14 Creatinine 0.6 L Est GFR ( Amer) > 60 Est GFR (Non-Af Amer) > 60 Random Glucose 91 Calcium 9.5 Total Bilirubin 0.4 AST 32 ALT 33 Alkaline Phosphatase 89 Troponin I < 0.0120 Total Protein 7.9 Albumin 4.4 Globulin 3.4 Albumin/Globulin Ratio 1.3 Lipase 77 Attending/Attestation - Attestation I have personally seen and examined this patient.: Yes I have fully participated in the care of the patient.: Yes I have reviewed all pertinent clinical information: Yes Notes (Text): Patient seen and examined with the resident, agree with above symptoms of right sided chest pain radiating to the neck risk factors including age, dyslipidemia, family history of cardiac disease in her father f/u on trops/ekg. Echo to assess for [facility] cardio consultation given her prior history of anginal symptoms - may warrant a stress test
--- NOTE | 2018-08-27 18:16 | CARD ---
APPROVED REPORT Date of service: 08/27/2018 EKG Measurement Heart [id number] <Conclusion> Normal sinus rhythm Normal Electrocardiogram
[2018-08-27 20:02] LABS: HDL CHOLESTEROL 92 MG/DL (30-70)
[2018-08-27 20:12] LABS: LDL CHOLESTEROL 141 mg/dL (0-129)
--- NOTE | 2018-08-28 05:06 | CON ---
DATE: 08/27/2018 REASON FOR CONSULTATION: Chest pain. 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 The patient is a poor historian. The patient is a 57-year-old female who has no known prior cardiac history. The patient complains of chest discomfort. The patient cannot describe the character of her chest pain, but she did report to the metal machine operator that she gets pain when she moves her upper body and sometimes she has pain in her back. The patient denies any shortness of breath or diaphoresis. The patient reports some stomach problems. SOCIAL HISTORY: Nonsmoker. Nondrinker. MEDICATIONS: At home, the patient was on Motrin, omeprazole, and Erika. CURRENT HOSPITAL MEDICATIONS: Lipitor 20 mg once a day, Lovenox 40 mg subcutaneously once a day, Protonix 40 mg once a day. REVIEW OF SYSTEMS: No fever, chills. No nausea, vomiting. No dizziness or syncope. PHYSICAL EXAMINATION: GENERAL: The patient is a middle-aged female who does not appear to be in acute distress. VITAL SIGNS: Blood pressure 106/71, heart rate 77, temperature 97.9, respirations 18. HEENT: Normocephalic. NECK: No JVD. CHEST: Clear. HEART: S1, S2 regular. ABDOMEN: Soft. EXTREMITIES: No edema. LABORATORY DATA: SMA-7 is within normal limits, except for creatine 0.6, first troponin is negative. Today's hemoglobin, hematocrit 12.6 and 40, white count and platelet count are within normal limits. EKG revealed sinus rhythm at the rate of 74, possible left atrial enlargement. Abdominal ultrasound, no evidence of cholelithiasis or acute cholecystitis. Chest x-ray was unremarkable. ASSESSMENT: Chest pain, rule out myocardial infarction, very unlikely aortic dissection. RECOMMENDATIONS: Continue current Lipitor 20 mg once a day, Lovenox 40 mg once a day. The patient received aspirin 325 mg in the emergency room, obtain an echocardiogram and serum D-dimer. Perico Angel MD
--- NOTE | 2018-08-28 08:13 | CP.PCM.PN ---
Objective - Vital Signs/Intake and Output Vital Signs (last 24 hours): Temp Pulse Resp BP Pulse Ox 97.8 F 69 16 105/69 100 08/28/18 04:59 08/28/18 04:59 08/28/18 04:59 08/28/18 04:59 08/28/18 04:59 - Medications Medications: Current Medications Acetaminophen (Tylenol 325mg Tab) 650 mg PO Q6 PRN PRN Reason: Pain, Mild (1-3) Atorvastatin Calcium (Lipitor) 20 mg PO [facility] Last Admin: 08/28/18 01:00 Dose: 20 mg Enoxaparin Sodium (Lovenox) 40 mg SC DAILY VIVIAN; Protocol Pantoprazole Sodium (Protonix Ec Tab) 40 mg PO DAILY VIVIAN - Labs Labs: 08/27/18 11:50 08/27/18 11:50
[2018-08-28 08:50] VITALS: BP 103/59; RESP 18; TEMP 98.2; O2SAT 98
[2018-08-28] MEDS ORDERED: Pantoprazole 40 mg EC Tab PO SCH (09:00)
[2018-08-28] MEDS ORDERED: Enoxaparin 40 mg Syringe SC SCH (09:00)
--- NOTE | 2018-08-28 10:48 | RAD ---
HISTORY: Chest pain COMPARISON: 08/27/2018 TECHNIQUE: Chest PA and lateral FINDINGS: LINES AND TUBES: None. LUNG AND PLEURA: The lungs are well inflated and clear. No pleural effusion or pneumothorax. HEART AND MEDIASTINUM: The heart is not enlarged. No aortic atherosclerotic calcification present. The hilar and mediastinal contours are within normal limits. SKELETAL STRUCTURES: The bony structures are within normal limits for the patient's age. VISUALIZED UPPER ABDOMEN: Normal. OTHER FINDINGS: None. IMPRESSION: No active pulmonary disease.
--- NOTE | 2018-08-28 11:32 | CP.PCM.DIS ---
<Luther GeeLeoncio - Last Filed: 08/28/18 13:12> Provider - Provider Date of Admission: 08/27/18 15:17 Attending physician: Lionel Antunez Time Spent in preparation of Discharge (in minutes): 33 Diagnosis - Discharge Diagnosis (1) Atypical chest pain Status: Resolved (2) GERD (gastroesophageal reflux disease) Status: Chronic Hospital Course - Lab Results Lab Results: Most Recent Lab Values WBC 4.9 K/uL (4.8-10.8) 08/27/18 11:50 RBC 4.33 Mil/uL (3.80-5.20) 08/27/18 11:50 Hgb 12.6 g/dL (12.0-16.0) 08/27/18 11:50 Hct 40.0 % (34.0-47.0) 08/27/18 11:50 MCV 92.4 fl (81.0-99.0) D 08/27/18 11:50 MCH 29.2 pg (27.0-31.0) 08/27/18 11:50 MCHC 31.6 g/dL (33.0-37.0) L 08/27/18 11:50 RDW 13.9 % (11.5-14.5) 08/27/18 11:50 Plt Count 289 K/uL (130-400) 08/27/18 11:50 MPV 8.2 fl (7.2-11.7) 08/27/18 11:50 Neut % (Auto) 50.4 % (50.0-75.0) 08/27/18 11:50 Lymph % (Auto) 41.0 % (20.0-40.0) H 08/27/18 11:50 [place] % (Auto) 6.4 % (0.0-10.0) 08/27/18 11:50 Eos % (Auto) 1.3 % (0.0-4.0) 08/27/18 11:50 Baso % (Auto) 0.9 % (0.0-2.0) 08/27/18 11:50 Neut # (Auto) 2.5 K/uL (1.8-7.0) 08/27/18 11:50 Lymph # (Auto) 2.0 K/uL (1.0-4.3) 08/27/18 11:50 [place] # (Auto) 0.3 K/uL (0.0-0.8) 08/27/18 11:50 Eos # (Auto) 0.1 K/uL (0.0-0.7) 08/27/18 11:50 Baso # (Auto) 0.0 K/uL (0.0-0.2) 08/27/18 11:50 D-Dimer, Quantitative 471 ng/mlDDU (0-230) H 08/27/18 19:40 Sodium 140 mmol/l (132-148) 08/27/18 11:50 Potassium 4.8 MMOL/L (3.6-5.0) 08/27/18 11:50 Chloride 107 mmol/L (98-107) 08/27/18 11:50 Carbon Dioxide 22 mmol/L (22-30) 08/27/18 11:50 Anion Gap 16 (10-20) 08/27/18 11:50 BUN 14 mg/dl (7-17) 08/27/18 11:50 Creatinine 0.6 mg/dl (0.7-1.2) L 08/27/18 11:50 Est GFR ( Amer) > 60 08/27/18 11:50 Est GFR (Non-Af Amer) > 60 08/27/18 11:50 Random Glucose 91 mg/dL (65-105) 08/27/18 11:50 Calcium 9.5 mg/dL (8.4-10.2) 08/27/18 11:50 Total Bilirubin 0.4 mg/dl (0.2-1.3) 08/27/18 11:50 AST 32 U/L (14-36) 08/27/18 11:50 ALT 33 U/L (9-52) 08/27/18 11:50 Alkaline Phosphatase 89 U/L (38-126) 08/27/18 11:50 Troponin I < 0.0120 ng/mL (0.00-0.120) 08/28/18 04:20 Total Protein 7.9 G/DL (6.3-8.2) 08/27/18 11:50 Albumin 4.4 g/dL (3.5-5.0) 08/27/18 11:50 Globulin 3.4 gm/dL (2.2-3.9) 08/27/18 11:50 Albumin/Globulin Ratio 1.3 (1.0-2.1) 08/27/18 11:50 Triglycerides 61 mg/DL (0-149) D 08/27/18 19:40 Cholesterol 235 mg/dL (0-199) H 08/27/18 19:40 LDL Cholesterol Direct 141 mg/dL (0-129) H 08/27/18 19:40 HDL Cholesterol 92 MG/DL (30-70) H 08/27/18 19:40 Lipase 77 U/L (23-300) 08/27/18 11:50 - Hospital Course Hospital Course: 57 y/o female with PMHx of GERD, HLD, and Migraines headache, admitted for atypical chest pain on 08/27. Patient was admitted for atypical chest pain more right sided radiating to the neck, due to her risk factors including her age, h/o HLD and cardiac disease h/o her father, patient was evaluated with CE Troppnin I x3 serrial sets which were all within normal range, also EKG was NSR with no ST or T wave changes, CXR was negative for acute pulmonary disease, ABd US unremarkable. During her hospital stay in observation ACS was ruled out, patient had a rapid resolution of her chest pain, she is hemodinamically stable and on D/C day chest pain is resolved at this time. Patient is instructed to f/u in 2 to 3 days with her PMD Dr Carrillo at [facility] for f/u and re-evaluation. Cont meds: Omeprazole 40 PO QD Discharge Exam - Head Exam Head Exam: ATRAUMATIC, NORMAL INSPECTION, NORMOCEPHALIC - Eye Exam Eye Exam: EOMI - ENT Exam ENT Exam: Mucous Membranes Moist - Respiratory Exam Respiratory Exam: Clear to PA & Lateral. absent: Wheezes - Cardiovascular Exam Cardiovascular Exam: RRR, +S1, +S2 - GI/Abdominal Exam GI & Abdominal Exam: Normal Bowel Sounds, Soft, Tenderness (mild tenderness to deep palpation of epigastrium). absent: Mass - Neurological Exam Neurological exam: Alert, Oriented x3 - Psychiatric Exam Psychiatric exam: Normal Affect, Normal Mood - Skin Skin Exam: Normal Color, Warm Discharge Plan - Follow Up Plan Condition: STABLE Disposition: HOME/ ROUTINE Instructions: Acid Reflux (Gastroesophageal Reflux Disease), Adult (DC), Chest Pain (DC) Additional Instructions: Follow with your PMD within 2 to 3 days. ED instructions: Return to the ED if your chest pain recurs or you have abdominal pain that does not get relief with your regular medication, or other concerning symptoms you should return to the ED. Referrals: [facility] [Outside] Mo Talbto MD [Family Provider] - <MatthewKina Marilyn - Last Filed: 08/28/18 16:06> Provider - Provider Date of Admission: 08/27/18 15:17 Attending physician: [facility] Course - Lab Results Lab Results: Most Recent Lab Values WBC 4.9 K/uL (4.8-10.8) 08/27/18 11:50 RBC 4.33 Mil/uL (3.80-5.20) 08/27/18 11:50 Hgb 12.6 g/dL (12.0-16.0) 08/27/18 11:50 Hct 40.0 % (34.0-47.0) 08/27/18 11:50 MCV 92.4 fl (81.0-99.0) D 08/27/18 11:50 MCH 29.2 pg (27.0-31.0) 08/27/18 11:50 MCHC 31.6 g/dL (33.0-37.0) L 08/27/18 11:50 RDW 13.9 % (11.5-14.5) 08/27/18 11:50 Plt Count 289 K/uL (130-400) 08/27/18 11:50 MPV 8.2 fl (7.2-11.7) 08/27/18 11:50 Neut % (Auto) 50.4 % (50.0-75.0) 08/27/18 11:50 Lymph % (Auto) 41.0 % (20.0-40.0) H 08/27/18 11:50 [place] % (Auto) 6.4 % (0.0-10.0) 08/27/18 11:50 Eos % (Auto) 1.3 % (0.0-4.0) 08/27/18 11:50 Baso % (Auto) 0.9 % (0.0-2.0) 08/27/18 11:50 Neut # (Auto) 2.5 K/uL (1.8-7.0) 08/27/18 11:50 Lymph # (Auto) 2.0 K/uL (1.0-4.3) 08/27/18 11:50 [place] # (Auto) 0.3 K/uL (0.0-0.8) 08/27/18 11:50 Eos # (Auto) 0.1 K/uL (0.0-0.7) 08/27/18 11:50 Baso # (Auto) 0.0 K/uL (0.0-0.2) 08/27/18 11:50 D-Dimer, Quantitative 471 ng/mlDDU (0-230) H 08/27/18 19:40 Sodium 140 mmol/l (132-148) 08/27/18 11:50 Potassium 4.8 MMOL/L (3.6-5.0) 08/27/18 11:50 Chloride 107 mmol/L (98-107) 08/27/18 11:50 Carbon Dioxide 22 mmol/L (22-30) 08/27/18 11:50 Anion Gap 16 (10-20) 08/27/18 11:50 BUN 14 mg/dl (7-17) 08/27/18 11:50 Creatinine 0.6 mg/dl (0.7-1.2) L 08/27/18 11:50 Est GFR ( Amer) > 60 08/27/18 11:50 Est GFR (Non-Af Amer) > 60 08/27/18 11:50 Random Glucose 91 mg/dL (65-105) 08/27/18 11:50 Hemoglobin A1c 5.6 % (4.2-6.5) 08/27/18 19:40 Calcium 9.5 mg/dL (8.4-10.2) 08/27/18 11:50 Total Bilirubin 0.4 mg/dl (0.2-1.3) 08/27/18 11:50 AST 32 U/L (14-36) 08/27/18 11:50 ALT 33 U/L (9-52) 08/27/18 11:50 Alkaline Phosphatase 89 U/L (38-126) 08/27/18 11:50 Troponin I < 0.0120 ng/mL (0.00-0.120) 08/28/18 04:20 Total Protein 7.9 G/DL (6.3-8.2) 08/27/18 11:50 Albumin 4.4 g/dL (3.5-5.0) 08/27/18 11:50 Globulin 3.4 gm/dL (2.2-3.9) 08/27/18 11:50 Albumin/Globulin Ratio 1.3 (1.0-2.1) 08/27/18 11:50 Triglycerides 61 mg/DL (0-149) D 08/27/18 19:40 Cholesterol 235 mg/dL (0-199) H 08/27/18 19:40 LDL Cholesterol Direct 141 mg/dL (0-129) H 08/27/18 19:40 HDL Cholesterol 92 MG/DL (30-70) H 08/27/18 19:40 Lipase 77 U/L (23-300) 08/27/18 11:50 Attending/Attestation - Attestation I have personally seen and examined this patient.: Yes I have fully participated in the care of the patient.: Yes I have reviewed all pertinent clinical information, including history, physical exam and plan: Yes Notes (Text): 08/28/18 16:06 Seen examined and discussed with resident. Agree with findings and plan as above.
[2018-08-28 12:02] VITALS: PULSE 84
--- NOTE | 2018-08-28 17:21 | PN ---
DATE: 08/28/2018 SUBJECTIVE: The patient denied any chest pain or back pain. PHYSICAL EXAMINATION VITAL SIGNS: Blood pressure 103/59, heart rate 71, temperature 98.2, respirations 18. HEENT: Normocephalic. CHEST: Clear. HEART: S1, S2 regular. EXTREMITIES: No edema. LABORATORY DATA: Three sets of troponin are negative. ASSESSMENT AND PLAN: 1. Chest pain, myocardial infarction is ruled out. 2. Hypertriglyceridemia. RECOMMENDATIONS: Continue Lipitor 20 mg once a day, subcutaneous Lovenox is 40 mg once a day, start aspirin at 81 mg once a day. The patient is scheduled for an echocardiogram and I will follow the study results. Perico Angel MD
== END 2018-08-28 13:41 | disposition home or self-care (01) ==
LOC: H.ER 10:30 → H.ERHOLD 15:17 → H.TEL 08-28 00:53
PROVIDERS: ADMIT Hospitalist; ATTEND Hospitalist
DX: R07.89 Other chest pain (principal); K21.9 Gastro-esophageal reflux disease without esophagitis; E78.5 Hyperlipidemia, unspecified; E78.1 Pure hyperglyceridemia; E78.00 Pure hypercholesterolemia, unspecified; M81.0 Age-related osteoporosis without current pathological fracture; G43.909 Migraine, unspecified, not intractable, without status migrainosus; K29.70 Gastritis, unspecified, without bleeding; Z88.0 Allergy status to penicillin; Z82.49 Family history of ischemic heart disease and other diseases of the circulatory system
CPT/HCPCS: 36415; 71046; 76705; 80053; 80061; 83036; 83690; 84484; 85025; 85378; 93005; 96374; 99285; G0378; J1650

== ENCOUNTER 2018-10-04 06:08 | Emergency (ER) | payer MEDICAID ==
[2018-10-04 06:08] VITALS: BMI 32.6
[2018-10-04 06:28] VITALS: RESP 17
[2018-10-04] MEDS ORDERED: Sodium Chloride 0.9% 500 ML IV STA (07:47)
[2018-10-04 08:17] LABS: BASO # 0.1 K/uL (0.0-0.2); BASO % 1.7 % (0.0-2.0); EOS # 0.1 K/uL (0.0-0.7); EOS % 2.8 % (0.0-4.0); HEMOGLOBIN 12.8 g/dL (12.0-16.0); LYMPH # 1.8 K/uL (1.0-4.3); LYMPH % 58.7 % (20.0-40.0); MEAN CELL VOLUME 92.2 fl (81.0-99.0); MEAN CORPUSCULAR HEMOGLOBIN 29.2 pg (27.0-31.0); MEAN CORPUSCULAR HGB CONC 31.6 g/dL (33.0-37.0); MEAN PLATELET VOLUME 8.1 fl (7.2-11.7); MONO # 0.4 K/uL (0.0-0.8); MONO % 11.4 % (0.0-10.0); NEUT # 0.8 K/uL (1.8-7.0); NEUT % 25.4 % (50.0-75.0); NRBC % 0.1 % (0.0-0.0); RBC 4.38 Mil/uL (3.80-5.20); RED CELL DISTRIBUTION WIDTH 13.8 % (11.5-14.5); WHITE BLOOD COUNT 3.2 K/uL (4.8-10.8)
--- NOTE | 2018-10-04 09:17 | ED PDOC ---
HPI: Headache Time Seen by Provider: 10/04/18 07:04 Chief Complaint (Nursing): Headache Chief Complaint (Provider): headache History Per: Patient, Database Coordinator ([id number]) History/Exam Limitations: no limitations Onset/Duration Of Symptoms: Intermittent Episodes (x 5 months) Current Symptoms Are (Timing): Still Present Severity: Moderate Quality: Tightness Preceeding Symptoms: None Associated Symptoms: denies: Photophobia, Blurred Vision, Nausea, Vomiting Additional History Per: Prior Records Additional Complaint(s): 58yo female presents c/o headache awoke her from sleep around 3am, consistent with prior episodes of similar headaches now ongoing intermittently for about 5 months. Told in past she has migranes, takes medication for "migrane" OTC but denies other Rx medications currently. Denies chest pain, syncope, vomiting. Notes mild neck pain when headaches present but no back pain or fever. Past Medical History Reviewed: Historical Data, Nursing Documentation, Vital Signs Vital Signs: Last Vital Signs Temp 97.6 F 10/04/18 06:20 Pulse 70 10/04/18 06:20 Resp 17 10/04/18 06:20 BP 134/76 10/04/18 06:20 Pulse Ox 99 10/04/18 06:20 - Medical History PMH: Gastritis, GERD, Hypercholesterolemia, Hyperlipidemia, Osteoporosis Denies: Chronic Kidney Disease - Surgical History Surgical History: (x2) - Family History Family History: States: Unknown Family Hx - Living Arrangements Living Arrangements: With Family - Social History Current smoker - smoking cessation education provided: No - Immunization History Hx Tetanus Toxoid Vaccination: No Hx Influenza Vaccination: No Hx Pneumococcal Vaccination: No - Home Medications Home Medications: Ambulatory Orders Medication Instructions Recorded Ibuprofen [Motrin Tab] 600 mg PO Q6H PRN #20 tab 08/23/18 Fexofenadine HCl [Erika NF] 180 mg PO DAILY 08/27/18 Omeprazole 40 mg PO DAILY 08/27/18 - Allergies Allergies/Adverse Reactions: Allergies Allergy/AdvReac Type Severity Reaction Status Date / Time ampicillin Allergy RASH Verified 08/22/18 21:37 Penicillins Allergy RASH Verified 08/22/18 21:37 Review of Systems Constitutional: Negative for: Fever, Chills, Sweats Eyes: Negative for: Vision Change ENT: Negative for: Nose Discharge, Throat Pain, Throat Swelling Cardiovascular: Negative for: Chest Pain, Palpitations Respiratory: Negative for: Cough, Shortness of Breath Gastrointestinal: Negative for: Nausea, Vomiting, Abdominal Pain Genitourinary Female: Negative for: Dysuria Musculoskeletal: Positive for: Neck Pain. Negative for: Shoulder Pain, Arm Pain, Back Pain, Leg Pain Skin: Negative for: Rash, Lesions, Jaundice Neurological: Positive for: Headache. Negative for: Weakness, Numbness, Incoordination, Change in Speech, Confusion, Seizures, Altered Mental Status, Dizziness Psych: Negative for: Anxiety Physical Exam - Reviewed Nursing Documentation Reviewed: Yes Vital Signs Reviewed: Yes - Physical Exam Appears: Positive for: Well, Non-toxic, No Acute Distress Head Exam: Positive for: ATRAUMATIC, NORMAL INSPECTION, NORMOCEPHALIC Skin: Positive for: Normal Color, Warm, DRY Eye Exam: Positive for: EOMI, Normal appearance, PERRL ENT: Positive for: Normal ENT Inspection Neck: Positive for: Normal, Painless ROM Cardiovascular/Chest: Positive for: Regular Rate, Rhythm Respiratory: Positive for: CNT, Normal Breath Sounds Gastrointestinal/Abdominal: Positive for: Normal Exam, Soft Back: Positive for: Normal Inspection Extremity: Positive for: Normal ROM Neurologic/Psych: Positive for: Alert, Oriented - Laboratory Results Result Diagrams: 10/04/18 07:51 10/04/18 08:32 - ECG O2 Sat by Pulse Oximetry: 99 Medical Decision Making Medical Decision Making: prior chart reviewed, recent admission for chest pain seen by cardio. will check basic labs and CT brain Toradol and gentle IVF ordered for headache Accession No. : [id number] Patient Name / ID : EILEEN LAGOS / [id number] Exam Date : 10/04/2018 08:37:47 ( Approved ) Study Comment : Sex / Age : F / 58Y Creator : Alvin Lee MD Dictator : Alvin Lee MD Fund Development Manager : Heel Padder : Alvin Lee MD Approver2 : Report Date : 10/04/2018 09:28:21 My Comment : Date of service: 10/04/2018 PROCEDURE: CT HEAD WITHOUT CONTRAST. HISTORY: r/o ICH COMPARISON: Noncontrast head CT 03/28/2018. TECHNIQUE: Axial computed tomography images were obtained through the head/brain without intravenous contrast. Radiation dose: Total exam DLP = 668.51 mGy-cm. This CT exam was performed using one or more of the following dose reduction techniques: Automated exposure control, adjustment of the mA and/or kV according to patient size, and/or use of iterative reconstruction technique. FINDINGS: HEMORRHAGE: No intracranial hemorrhage. BRAIN: Normal lara-white matter differentiation and density are appreciated throughout the cerebrum and cerebellum with the brainstem appearing unremarkable as well. There is no mass effect. There is no suspicious extra-axial fluid collection and the midline brain anatomy appears diffusely unremarkable. VENTRICLES: Unremarkable. No hydrocephalus. CALVARIUM: Unremarkable. PARANASAL SINUSES: Unremarkable as visualized. No significant inflammatory changes. MASTOID AIR CELLS: Unremarkable as visualized. No inflammatory changes. OTHER FINDINGS: None. IMPRESSION: Unremarkable unenhanced CT of the Head. No significant interval change greater prior head CT dated 03/28/2018. labs reviewed and unremarkable DC from ED Rx naprosyn and followup neuro/PMD for MRI brain if symptoms persist. Neuro stable and improved on re-eval [id number] Disposition - Clinical Impression Clinical Impression: Acute headache - Disposition Disposition: Routine/Home Disposition Time: 11:36 Condition: STABLE Instructions: Acute Headache (ED) Forms: [employer] (Indonesian)
[2018-10-04 09:29] LABS: ALB/GLOB RATIO 1.4 (1.0-2.1); ALT/SGPT 34 U/L (9-52); AST/SGOT 38 U/L (14-36); BLOOD UREA NITROGEN 10 mg/dl (7-17); CALCIUM 9.4 mg/dL (8.4-10.2); GFR NON-AFRICAN AMERICAN > 60
--- NOTE | 2018-10-04 09:31 | CT ---
Date of service: 10/04/2018 PROCEDURE: CT HEAD WITHOUT CONTRAST. HISTORY: r/o ICH COMPARISON: Noncontrast head CT 03/28/2018. TECHNIQUE: Axial computed tomography images were obtained through the head/brain without intravenous contrast. Radiation dose: Total exam DLP = 668.51 mGy-cm. This CT exam was performed using one or more of the following dose reduction techniques: Automated exposure control, adjustment of the mA and/or kV according to patient size, and/or use of iterative reconstruction technique. FINDINGS: HEMORRHAGE: No intracranial hemorrhage. BRAIN: Normal lara-white matter differentiation and density are appreciated throughout the cerebrum and cerebellum with the brainstem appearing unremarkable as well. There is no mass effect. There is no suspicious extra-axial fluid collection and the midline brain anatomy appears diffusely unremarkable. VENTRICLES: Unremarkable. No hydrocephalus. CALVARIUM: Unremarkable. PARANASAL SINUSES: Unremarkable as visualized. No significant inflammatory changes. MASTOID AIR CELLS: Unremarkable as visualized. No inflammatory changes. OTHER FINDINGS: None. IMPRESSION: Unremarkable unenhanced CT of the Head. No significant interval change greater prior head CT dated 03/28/2018.
[2018-10-04 12:42] VITALS: BP 121/74; PULSE 64; TEMP 98; O2SAT 98
== END 2018-10-04 12:41 | disposition home or self-care (01) ==
LOC: H.ER 06:08
DX: R51 Headache (principal)
CPT/HCPCS: 70450; 80053; 85025; 96361; 96374; 99285; J1885; J7030

== ENCOUNTER 2019-01-26 07:06 | Inpatient (IN) | payer MEDICAID ==
[2019-01-26] MEDS ORDERED: Sodium Chloride 0.9% 1,000 ML IV SCH (07:45)
[2019-01-26 07:56] VITALS: BMI 27.8
--- NOTE | 2019-01-26 07:59 | ED PDOC ---
Upper Extremity Pain/Injury Time Seen by Provider: 01/26/19 07:28 Chief Complaint (Nursing): Upper Extremity Problem/Injury Chief Complaint (Provider): Upper Extremity Problem/Injury History Per: Patient, Real Property Appraiser (Lorri Herrera # [id number]) History/Exam Limitations: language barrier Onset/Duration Of Symptoms: Hrs Current Symptoms Are (Timing): Still Present Additional Complaint(s): Patient is a 58 y/o female with a PMHx of hypercholesterolemia, hyperlipidemia, osteoporosis, gastritis, and GERD who presents to the ED for evaluation of left finger and hand pain onset this morning at 4:00. Patient states she went to sleep last night at 22:30 and woke up with her third and fourth left digits having fallen asleep. Patient began massaging and rubbing her fingers but reports they were still bothersome. Patient claims after some time the sensation grew to the rest of her left hand and started migrating to her right hand. In addition, patient reports her mouth and tongue started feeling heavy, thus prompting her ED visit. Patient denies weakness when moving and arm pain. Of note, patient's medication includes Omeprazole, Amitriptyline, and Naproxen. PCP: None Provided NIHSS Stroke Scale - Date/Time Evaluation Performed Date Performed: 01/26/19 Time Performed: 07:40 When Was NIHSS Performed: Code Stroke - How Severe is the Stroke Level of Consciousness: 0=Alert LOC to Questions: 0=Both comments correct LOC to commands: 0=Obeys both correctly Best Gaze: 0=Normal Visual: 0=No visual loss Facial: 0=Normal Motor Arm - Left: 0=No drift Motor Arm - Right: 0=No drift Motor Leg - Left: 0=No drift Motor Leg - Right: 0=No drift Limb Ataxia: 0=Absent Sensory: 0=Normal Best Language: 0=No aphasia Dysarthia: 0=Normal articulation Extinction & Inattention (Neglect): 0=Normal, no object Score: 0 Past Medical History Reviewed: Historical Data, Nursing Documentation, Vital Signs Vital Signs: Last Vital Signs Temp 97.5 F L 01/26/19 07:52 Pulse 67 01/26/19 07:53 Resp 20 01/26/19 07:53 BP 123/65 01/26/19 07:53 Pulse Ox 98 01/26/19 07:53 - Medical History PMH: Gastritis, GERD, Hypercholesterolemia, Hyperlipidemia, Osteoporosis Denies: Chronic Kidney Disease - Surgical History Surgical History: (x2) - Family History Family History: States: Unknown Family Hx - Immunization History Hx Tetanus Toxoid Vaccination: No Hx Influenza Vaccination: No Hx Pneumococcal Vaccination: No - Home Medications Home Medications: Ambulatory Orders Medication Instructions Recorded Omeprazole 40 mg PO DAILY 08/27/18 Amitriptyline HCl 10 mg PO HS 01/26/19 Naproxen [Naprosyn] 500 mg PO Q12 01/26/19 - Allergies Allergies/Adverse Reactions: Allergies Allergy/AdvReac Type Severity Reaction Status Date / Time ampicillin Allergy RASH Verified 08/22/18 21:37 Penicillins Allergy RASH Verified 08/22/18 21:37 Review of Systems ROS Statement: Except As Marked, All Systems Reviewed And Found Negative ENT: Positive for: Other (mouth and tongue heaviness) Musculoskeletal: Positive for: Hand Pain (left hand and fingers falling asleep migrating to right hand). Negative for: Arm Pain Neurological: Negative for: Weakness Physical Exam - Reviewed Nursing Documentation Reviewed: Yes Vital Signs Reviewed: Yes - Physical Exam Appears: Positive for: Non-toxic, No Acute Distress Head Exam: Positive for: ATRAUMATIC, NORMAL INSPECTION, NORMOCEPHALIC Skin: Positive for: Normal Color, Warm Eye Exam: Positive for: EOMI, Normal appearance, PERRL ENT: Positive for: Normal ENT Inspection Neck: Positive for: Normal, Painless ROM, Supple Cardiovascular/Chest: Positive for: Regular Rate, Rhythm. Negative for: Murmur Respiratory: Positive for: Normal Breath Sounds. Negative for: Respiratory Di stress Gastrointestinal/Abdominal: Positive for: Normal Exam, Soft. Negative for: Tenderness Back: Positive for: Normal Inspection. Negative for: L CVA Tenderness, R CVA Tenderness, Vertebral Tenderness Extremity: Positive for: Normal ROM, Other (sensation to touch intact; straight arm and leg raise intact). Negative for: Pedal Edema, Deformity Neurological/Psych: Positive for: Alert, Oriented (x3) - Laboratory Results Result Diagrams: 01/26/19 08:00 01/26/19 08:00 - ECG Interpretation Of ECG: NSR @ 93, no ST-T changes. O2 Sat by Pulse Oximetry: 98 (RA) Pulse Ox Interpretation: Normal - Core Measure Core Measure Indicators: Code Stroke - Critical Care Total Time (In Min): 30 Medical Decision Making Medical Decision Making: Time: 0739 Impression: Paresthesia, CVA Plan: Type and Screen CT Head w/o (Code Stroke) EKG CMP Hemoglobin A1C Lipid Panel CBC PTT Prothrombin Time CXR Glucose, POC IV Fluids Division Head IV Insertion ([place]) ED Obtain Labs Glucose, Blood, POC Nursing Swallow Screen Vital Signs Time: 0758 According to [facility], CT negative for Code Stroke. CLINICAL HISTORY: stroke. TECHNIQUE: Multiple axial brain CT scan sections were obtained from base to vertex without contrast administration. COMMENTS: The study shows normal configuration of sella turcica. There are no intra or extra-axial collections. There is no mass effect or midline shift. There is no evidence of hematoma formation. No hydrocephalus is present. No abnormal calcifications are noted. No significant abnormalities are seen either in the posterior fossa or supratentorial compartment. The sinuses and mastoid air cells are patent. IMPRESSION: No evidence of acute intracranial pathology. Thank you for your kind referral of this patient. Electronically signed on Jan 26, 2019 7:56:32 AM EDT by: Alvin Garcia M.D., ALAYNA Certified By [facility] Fellowship Trained MRI and CT Specialist Accession No. : [id number] Patient Name / ID : EILEEN LAGOS D / [id number] Exam Date : 01/26/2019 07:52:28 ( Approved ) Study Comment : Sex / Age : F / 58Y Creator : Alvin Lee MD Dictator : Alvin Lee MD Human Resources Records Clerk : Jewel Bearing Driller : Alvin Lee MD Approver2 : Report Date : 01/26/2019 08:44:39 My Comment : Date of service: 01/26/2019 HISTORY: Code Stroke COMPARISON: Chest radiographs 08/27/2018. TECHNIQUE: 1 view obtained. FINDINGS: LUNGS: No acute infiltrates bilaterally. Diminished inspiratory volume. PLEURA: No significant pleural effusion identified, no pneumothorax apparent. CARDIOVASCULAR: No aortic atherosclerotic calcification present. Normal cardiac size. No pulmonary vascular congestion. OSSEOUS STRUCTURES: No significant abnormalities. VISUALIZED UPPER ABDOMEN: Normal. OTHER FINDINGS: None. IMPRESSION: Diminished inspiratory volume. No acute infiltrate, pleural effusion or pneumothorax. No definite pulmonary vascular congestion. Time: [address] Frank. Aspirin and MRI. Scribe Attestation: Documented by Homero Toledo, acting as a scribe Alec Oro MD. Provider Scribe Attestation: All medical record entries made by the Scribe were at my direction and personally dictated by me. I have reviewed the chart and agree that the record accurately reflects my personal performance of the history, physical exam, [facility] decision making, and the department course for this patient. I have also personally directed, reviewed, and agree with the discharge instructions and disposition. Disposition - Clinical Impression Clinical Impression: CVA (cerebral vascular accident) - Patient ED Disposition Is Patient to be Admitted: Yes - Disposition Disposition Time: 09:05 Condition: STABLE - Pt Status Changed To: Hospital Disposition Of: Inpatient - Admit Certification Admit to Inpatient:: After my assessment, the patient will require hospitalization for at least two midnights. This is because of the severity of symptoms shown, intensity of services needed, and/or the medical risk in this patient being treated as an outpatient. - POA Present On Arrival: None
[2019-01-26 08:13] LABS: BASO % 0.7 % (0.0-2.0); EOS # 0.1 K/uL (0.0-0.7); HEMOGLOBIN 12.2 g/dL (12.0-16.0); LYMPH # 1.1 K/uL (1.0-4.3); LYMPH % 43.1 % (20.0-40.0); MEAN CELL VOLUME 88.9 fl (81.0-99.0); MEAN CORPUSCULAR HEMOGLOBIN 29.3 pg (27.0-31.0); MEAN PLATELET VOLUME 7.8 fl (7.2-11.7); MONO # 0.4 K/uL (0.0-0.8); MONO % 13.4 % (0.0-10.0); NEUT # 1.1 K/uL (1.8-7.0); NEUT % 40.8 % (50.0-75.0); NRBC % 0.1 % (0.0-0.0); RBC 4.18 Mil/uL (3.80-5.20); WHITE BLOOD COUNT 2.6 K/uL (4.8-10.8)
[2019-01-26 08:17] LABS: PROTHROMBIN TIME 10.9 Seconds (9.8-13.1)
[2019-01-26 08:20] LABS: PARTIAL THROMBOPLASTIN TIME 33.5 Seconds (25.6-37.1)
[2019-01-26 08:25] LABS: ALB/GLOB RATIO 1.3 (1.0-2.1); ALBUMIN 4.1 g/dL (3.5-5.0); BLOOD UREA NITROGEN 18 mg/dl (7-17); CALCIUM 9.4 mg/dL (8.4-10.2); GFR NON-AFRICAN AMERICAN > 60; HDL CHOLESTEROL 72 MG/DL (30-70)
[2019-01-26 08:36] LABS: LDL CHOLESTEROL 110 mg/dL (0-129)
[2019-01-26 08:40] LABS: ALT/SGPT 37 U/L (9-52); AST/SGOT 38 U/L (14-36)
--- NOTE | 2019-01-26 08:48 | RAD ---
Date of service: 01/26/2019 HISTORY: Code Stroke COMPARISON: Chest radiographs 08/27/2018. TECHNIQUE: 1 view obtained. FINDINGS: LUNGS: No acute infiltrates bilaterally. Diminished inspiratory volume. PLEURA: No significant pleural effusion identified, no pneumothorax apparent. CARDIOVASCULAR: No aortic atherosclerotic calcification present. Normal cardiac size. No pulmonary vascular congestion. OSSEOUS STRUCTURES: No significant abnormalities. VISUALIZED UPPER ABDOMEN: Normal. OTHER FINDINGS: None. IMPRESSION: Diminished inspiratory volume. No acute infiltrate, pleural effusion or pneumothorax. No definite pulmonary vascular congestion.
--- NOTE | 2019-01-26 09:44 | CT ---
Date of service: 01/26/2019 PROCEDURE: CT HEAD WITHOUT CONTRAST. HISTORY: code stroke COMPARISON: Head CT without contrast 10/04/2018. TECHNIQUE: Axial computed tomography images were obtained through the head/brain without intravenous contrast. Radiation dose: Total exam DLP = 735.15 mGy-cm. This CT exam was performed using one or more of the following dose reduction techniques: Automated exposure control, adjustment of the mA and/or kV according to patient size, and/or use of iterative reconstruction technique. FINDINGS: HEMORRHAGE: No intracranial hemorrhage. BRAIN: Normal lara-white matter differentiation and density are appreciated throughout the cerebrum and cerebellum with the brainstem appearing unremarkable as well. There is no mass effect. There is no suspicious extra-axial fluid collection and the midline brain anatomy appears diffusely unremarkable. VENTRICLES: Unremarkable. No hydrocephalus. CALVARIUM: Unremarkable. PARANASAL SINUSES: Unremarkable as visualized. No significant inflammatory changes. MASTOID AIR CELLS: Unremarkable as visualized. No inflammatory changes. OTHER FINDINGS: None. IMPRESSION: Unremarkable unenhanced head CT. Stable exam compared prior head CT without contrast 10/04/2018. Results made available to referring physician by 7:56 a.m. 01/26/2019. Concordant preliminary report from [facility], 01/26/2019 7:56 a.m..
[2019-01-26] MEDS ORDERED: Aspirin 325 mg EC Tablets PO ONE (09:47)
--- NOTE | 2019-01-26 10:27 | CP.PCM.HP ---
<AlexLeora - Last Filed: 01/26/19 12:44> History of Present Illness - History of Present Illness History of Present Illness: 58 y/o F with PMHx of GERD, HLD, Migraines w/o aura, osteopenia & lower back pain present to the ED c/o numbness in left hand & tongue. Patient reports wakin g up & feeling some left hand numbness, which she states has occurred previously, but resolved after few seconds. This time, patient reported trying to alleviate the numbness by rubbing it, and was unable to do so. She endorses noticing the tongue numbness while brushing her teeth, which prompted her to come to ED. Denies f/c/headache, loc, prior stroke, urinary incontinence or hx of seizure. PMD: [facility] PMHx: GERD, HLD, Migraines w/o aura, osteopenia & lower back pain Meds: atorvastatin calcium 20mg PO QD HS, omeprazole 40mg PO QD, Amitriptyline 10mg PO HS, NAprosyn prn Surg Hx: x 2 FMHx: Mother of liver disease, father had CAD and first IA at age 70s SocHx: Denies Etoh/Tobacco/Elicit drug use drugs Allergies: Penicillin ROS: 10 point review of system negative except above ED course: VS: stable Aspirin [address] Frank consulted CXR- diminished insp vol; no acute infiltrate pleural effusion or pneumothorax; Head CT- unremarkable ; EKG- NSR @ rate of 77 bpm Present on Admission - Present on Admission Any Indicators Present on Admission: No Past Patient History - Past Medical History & Family History Past Medical History?: Yes - Past Social History Smoking Status: Never Smoked - CARDIAC Hx Hypercholesterolemia: Yes - PULMONARY Hx Respiratory Disorders: No - NEUROLOGICAL Hx Neurological Disorder: No - HEENT Hx HEENT Problems: No - RENAL Hx Chronic Kidney Disease: No - ENDOCRINE/METABOLIC Hx Endocrine Disorders: No - HEMATOLOGICAL/ONCOLOGICAL Hx Blood Disorders: No - INTEGUMENTARY Hx Dermatological Problems: No - MUSCULOSKELETAL/RHEUMATOLOGICAL Hx Osteoporosis: Yes - GASTROINTESTINAL Hx Gastritis: Yes - GENITOURINARY/GYNECOLOGICAL Hx Genitourinary Disorders: No - PSYCHIATRIC Hx Psychophysiologic Disorder: No Hx Substance Use: No - SURGICAL HISTORY Hx Surgeries: Yes Hx Section: Yes (x2) - ANESTHESIA Hx Anesthesia: Yes Hx Anesthesia Reactions: No Hx Malignant Hyperthermia: No Meds Allergies/Adverse Reactions: Allergies Allergy/AdvReac Type Severity Reaction Status Date / Time ampicillin Allergy RASH Verified 08/22/18 21:37 Penicillins Allergy RASH Verified 08/22/18 21:37 Physical Exam - Constitutional Appears: Non-toxic - Head Exam Head Exam: ATRAUMATIC, NORMAL INSPECTION - Eye Exam Eye Exam: EOMI, PERRL - ENT Exam ENT Exam: Mucous Membranes Moist - Respiratory Exam Respiratory Exam: Clear to Auscultation Bilateral. absent: Wheezes, Respiratory Distress - Cardiovascular Exam Cardiovascular Exam: REGULAR RHYTHM, +S1, +S2 - GI/Abdominal Exam GI & Abdominal Exam: Normal Bowel Sounds, Soft. absent: Guarding, Rigid, Tenderness - Back Exam Back exam: NORMAL INSPECTION - Neurological Exam Neurological exam: Alert, CN II-XII Intact, Oriented x3 Additional comments: strength and sensation in tact in upper and lower extremities b/l - Psychiatric Exam Psychiatric exam: Normal Affect, Normal Mood - Skin Skin Exam: Dry, Intact Results - Vital Signs Recent Vital Signs: Last Vital Signs Temp 97.6 F 01/26/19 09:50 Pulse 70 01/26/19 09:50 Resp 19 01/26/19 09:50 BP 120/70 01/26/19 09:50 Pulse Ox 98 01/26/19 09:50 - Labs Result Diagrams: 01/26/19 08:00 01/26/19 08:00 Labs: Laboratory Results - last 24 hr 01/26/19 01/26/19 01/26/19 07:12 07:39 08:00 WBC 2.6 L RBC 4.18 Hgb 12.2 Hct 37.2 MCV 88.9 D MCH 29.3 MCHC 33.0 RDW 14.0 Plt Count 261 MPV 7.8 Neut % (Auto) 40.8 L Lymph % (Auto) 43.1 H [place] % (Auto) 13.4 H Eos % (Auto) 2.0 Baso % (Auto) 0.7 Neut # (Auto) 1.1 L Lymph # (Auto) 1.1 [place] # (Auto) 0.4 Eos # (Auto) 0.1 Baso # (Auto) 0.0 PT INR APTT Sodium Potassium Chloride Carbon Dioxide Anion Gap BUN Creatinine Est GFR ( Amer) Est GFR (Non-Af Amer) POC Glucose (mg/dL) 110 100 Random Glucose Calcium Total Bilirubin AST ALT Alkaline Phosphatase Troponin I Total Protein Albumin Globulin Albumin/Globulin Ratio Triglycerides Cholesterol LDL Cholesterol Direct HDL Cholesterol 01/26/19 01/26/19 08:00 08:00 WBC RBC Hgb Hct MCV MCH MCHC RDW Plt Count MPV Neut % (Auto) Lymph % (Auto) [place] % (Auto) Eos % (Auto) Baso % (Auto) Neut # (Auto) Lymph # (Auto) [place] # (Auto) Eos # (Auto) Baso # (Auto) PT 10.9 INR 1.0 APTT 33.5 Sodium 137 Potassium 4.5 Chloride 103 Carbon Dioxide 25 Anion Gap 14 BUN 18 H Creatinine 0.6 L Est GFR ( Amer) > 60 Est GFR (Non-Af Amer) > 60 POC Glucose (mg/dL) Random Glucose 100 Calcium 9.4 Total Bilirubin 0.6 AST 38 H ALT 37 Alkaline Phosphatase 82 Troponin I < 0.0120 Total Protein 7.3 Albumin 4.1 Globulin 3.2 Albumin/Globulin Ratio 1.3 Triglycerides 79 D Cholesterol 215 H LDL Cholesterol Direct 110 HDL Cholesterol 72 H Assessment & Plan - Assessment and Plan (Free Text) Assessment: 58 y/o F with PMHx of GERD, HLD, Migraines w/o aura, osteopenia & lower back pain present to the ED c/o numbness in left hand & tongue. 1. Left hand paresthesia/tongue numbness (r/o cva) -s/p 1 dose of aspirin 325mg -Head CT neg for acute pathology -FU MRI -PT/OT -Swallow eval -FU A1c -Neuro checks 2. HLD (chronic) -C/w atorvastatin 20 mg HS -FU lipid panel 3. Migraines w/o aura -C/w Amitriptyline 10mg PO HS 4. Gerd (chronic) -C/w protonox 40mg PO QD <Avery Laureano D - Last Filed: 01/26/19 13:27> Results - Vital Signs Recent Vital Signs: Last Vital Signs Temp 97.6 F 01/26/19 11:15 Pulse 78 01/26/19 11:54 Resp 18 01/26/19 11:54 BP 120/70 01/26/19 09:50 Pulse Ox 98 01/26/19 11:54 - Labs Result Diagrams: 01/26/19 08:00 01/26/19 08:00 Labs: Laboratory Results - last 24 hr 01/26/19 01/26/19 01/26/19 07:12 07:39 08:00 WBC 2.6 L RBC 4.18 Hgb 12.2 Hct 37.2 MCV 88.9 D MCH 29.3 MCHC 33.0 RDW 14.0 Plt Count 261 MPV 7.8 Neut % (Auto) 40.8 L Lymph % (Auto) 43.1 H [place] % (Auto) 13.4 H Eos % (Auto) 2.0 Baso % (Auto) 0.7 Neut # (Auto) 1.1 L Lymph # (Auto) 1.1 [place] # (Auto) 0.4 Eos # (Auto) 0.1 Baso # (Auto) 0.0 PT INR APTT Sodium Potassium Chloride Carbon Dioxide Anion Gap BUN Creatinine Est GFR ( Amer) Est GFR (Non-Af Amer) POC Glucose (mg/dL) 110 100 Random Glucose Calcium Total Bilirubin AST ALT Alkaline Phosphatase Troponin I Total Protein Albumin Globulin Albumin/Globulin Ratio Triglycerides Cholesterol LDL Cholesterol Direct HDL Cholesterol 01/26/19 01/26/19 08:00 08:00 WBC RBC Hgb Hct MCV MCH MCHC RDW Plt Count MPV Neut % (Auto) Lymph % (Auto) [place] % (Auto) Eos % (Auto) Baso % (Auto) Neut # (Auto) Lymph # (Auto) [place] # (Auto) Eos # (Auto) Baso # (Auto) PT 10.9 INR 1.0 APTT 33.5 Sodium 137 Potassium 4.5 Chloride 103 Carbon Dioxide 25 Anion Gap 14 BUN 18 H Creatinine 0.6 L Est GFR ( Amer) > 60 Est GFR (Non-Af Amer) > 60 POC Glucose (mg/dL) Random Glucose 100 Calcium 9.4 Total Bilirubin 0.6 AST 38 H ALT 37 Alkaline Phosphatase 82 Troponin I < 0.0120 Total Protein 7.3 Albumin 4.1 Globulin 3.2 Albumin/Globulin Ratio 1.3 Triglycerides 79 D Cholesterol 215 H LDL Cholesterol Direct 110 HDL Cholesterol 72 H Attending/Attestation - Attestation I have personally seen and examined this patient.: Yes I have fully participated in the care of the patient.: Yes I have reviewed all pertinent clinical information: Yes Notes (Text): 01/26/19 13:26 Patient seen and examined with resident. Case discussed and agreed with assessment and plan of management.
--- NOTE | 2019-01-26 14:38 | MRI ---
Date of service: 01/26/2019 PROCEDURE: MRI BRAIN WITHOUT CONTRAST HISTORY: L hand numbness, tongue numbness COMPARISON: Noncontrast head CT 01/26/2019. TECHNIQUE: Multiplanar, multisequence MR images of the brain were obtained without intravenous contrast enhancement. FINDINGS: HEMORRHAGE: None DWI: No evidence of an acute or early subacute infarction. BRAIN PARENCHYMA: Good corticomedullary differentiation is seen. Limited, proportional, diffuse expansion of the ventriculosulcal and cisternal spaces is appreciated with occasional white matter long TR signal changes compatible with diffuse cerebral atrophy and chronic microangiopathy. No suspicious extra-axial fluid collection is identified and the midline brain anatomy appears grossly nonfocal as imaged. There is no mass effect throughout. VENTRICLES: Unremarkable. No hydrocephalus. CRANIUM: Unremarkable. ORBITS: Grossly unremarkable. PARANASAL SINUSES/MASTOIDS: Clear VASCULAR SYSTEM: Skull base flow voids intact. OTHER FINDINGS: None. IMPRESSION: No acute or subacute brain infarction appreciated at this time. Limited age-related neuro degenerative changes are appreciated, age-appropriate.
--- NOTE | 2019-01-26 15:05 | CARD ---
APPROVED REPORT Date of service: 01/26/2019 EKG Measurement Heart [id number] <Conclusion> Normal sinus rhythm Normal ECG
[2019-01-27 05:37] VITALS: RESP 20
[2019-01-27 06:34] LABS: BASO % 0.7 % (0.0-2.0); EOS # 0.1 K/uL (0.0-0.7); EOS % 3.2 % (0.0-4.0); HEMOGLOBIN 12.6 g/dL (12.0-16.0); LYMPH # 1.8 K/uL (1.0-4.3); LYMPH % 56.4 % (20.0-40.0); MEAN CELL VOLUME 89.2 fl (81.0-99.0); MEAN CORPUSCULAR HEMOGLOBIN 29.3 pg (27.0-31.0); MEAN CORPUSCULAR HGB CONC 32.8 g/dL (33.0-37.0); MEAN PLATELET VOLUME 8.2 fl (7.2-11.7); MONO # 0.4 K/uL (0.0-0.8); MONO % 12.5 % (0.0-10.0); NEUT # 0.9 K/uL (1.8-7.0); NEUT % 27.2 % (50.0-75.0); NRBC % 0.2 % (0.0-0.0); RBC 4.31 Mil/uL (3.80-5.20); RED CELL DISTRIBUTION WIDTH 13.8 % (11.5-14.5); WHITE BLOOD COUNT 3.2 K/uL (4.8-10.8)
[2019-01-27 06:47] LABS: ALB/GLOB RATIO 1.3 (1.0-2.1); ALT/SGPT 34 U/L (9-52); AST/SGOT 31 U/L (14-36); BLOOD UREA NITROGEN 23 mg/dl (7-17); CALCIUM 9.5 mg/dL (8.4-10.2); GFR NON-AFRICAN AMERICAN > 60
[2019-01-27] MEDS ORDERED: Pantoprazole 40 mg EC Tab PO SCH (09:00)
[2019-01-27] MEDS ORDERED: Enoxaparin 40 mg Syringe SC SCH (09:00)
--- NOTE | 2019-01-27 11:18 | CP.PCM.DIS ---
<Lawanda Carbajal - Last Filed: 01/27/19 11:31> Provider - Provider Date of Admission: 01/26/19 09:05 Attending physician: Avery Laureano MD Consults: 01/26/19 09:06 Neurology Consult Stat Comment: Consulting Provider: Albin Frank Consulting Physician: Albin Frank Reason for Consult: L hand numbness, tongue heaviness Time Spent in preparation of Discharge (in minutes): 20 Diagnosis - Discharge Diagnosis (1) Anxiety Status: Resolved Hospital Course - Lab Results Lab Results: Most Recent Lab Values WBC 3.2 K/uL (4.8-10.8) L 01/27/19 04:30 RBC 4.31 Mil/uL (3.80-5.20) 01/27/19 04:30 Hgb 12.6 g/dL (12.0-16.0) 01/27/19 04:30 Hct 38.5 % (34.0-47.0) 01/27/19 04:30 MCV 89.2 fl (81.0-99.0) 01/27/19 04:30 MCH 29.3 pg (27.0-31.0) 01/27/19 04:30 MCHC 32.8 g/dL (33.0-37.0) L 01/27/19 04:30 RDW 13.8 % (11.5-14.5) 01/27/19 04:30 Plt Count 259 K/uL (130-400) 01/27/19 04:30 MPV 8.2 fl (7.2-11.7) 01/27/19 04:30 Neut % (Auto) 27.2 % (50.0-75.0) L 01/27/19 04:30 Lymph % (Auto) 56.4 % (20.0-40.0) H 01/27/19 04:30 [place] % (Auto) 12.5 % (0.0-10.0) H 01/27/19 04:30 Eos % (Auto) 3.2 % (0.0-4.0) 01/27/19 04:30 Baso % (Auto) 0.7 % (0.0-2.0) 01/27/19 04:30 Neut # (Auto) 0.9 K/uL (1.8-7.0) L 01/27/19 04:30 Lymph # (Auto) 1.8 K/uL (1.0-4.3) 01/27/19 04:30 [place] # (Auto) 0.4 K/uL (0.0-0.8) 01/27/19 04:30 Eos # (Auto) 0.1 K/uL (0.0-0.7) 01/27/19 04:30 Baso # (Auto) 0.0 K/uL (0.0-0.2) 01/27/19 04:30 PT 10.9 Seconds (9.8-13.1) 01/26/19 08:00 INR 1.0 01/26/19 08:00 APTT 33.5 Seconds (25.6-37.1) 01/26/19 08:00 Sodium 137 mmol/l (132-148) 01/27/19 04:30 Potassium 4.2 MMOL/L (3.6-5.0) 01/27/19 04:30 Chloride 101 mmol/L (98-107) 01/27/19 04:30 Carbon Dioxide 26 mmol/L (22-30) 01/27/19 04:30 Anion Gap 14 (10-20) 01/27/19 04:30 BUN 23 mg/dl (7-17) H 01/27/19 04:30 Creatinine 0.7 mg/dl (0.7-1.2) 01/27/19 04:30 Est GFR ( Amer) > 60 01/27/19 04:30 Est GFR (Non-Af Amer) > 60 01/27/19 04:30 POC Glucose (mg/dL) 100 mg/dL (65-110) 01/26/19 07:39 Random Glucose 102 mg/dL (65-105) 01/27/19 04:30 Calcium 9.5 mg/dL (8.4-10.2) 01/27/19 04:30 Total Bilirubin 0.4 mg/dl (0.2-1.3) 01/27/19 04:30 AST 31 U/L (14-36) 01/27/19 04:30 ALT 34 U/L (9-52) 01/27/19 04:30 Alkaline Phosphatase 96 U/L (38-126) 01/27/19 04:30 Troponin I < 0.0120 ng/mL (0.00-0.120) 01/26/19 08:00 Total Protein 7.0 G/DL (6.3-8.2) 01/27/19 04:30 Albumin 4.0 g/dL (3.5-5.0) 01/27/19 04:30 Globulin 3.0 gm/dL (2.2-3.9) 01/27/19 04:30 Albumin/Globulin Ratio 1.3 (1.0-2.1) 01/27/19 04:30 Triglycerides 79 mg/DL (0-149) D 01/26/19 08:00 Cholesterol 215 mg/dL (0-199) H 01/26/19 08:00 LDL Cholesterol Direct 110 mg/dL (0-129) 01/26/19 08:00 HDL Cholesterol 72 MG/DL (30-70) H 01/26/19 08:00 - Hospital Course Hospital Course: 58 y/o F with PMHx of GERD, HLD, Migraines w/o aura, osteopenia & lower back pain presented to the ED c/o numbness in left hand & tongue and was admitted for rule out CVA. CVA appropriately ruled out, symptoms self-resolved and numbness and tingling likely secondary to anxiety/panic attack. Continue home medication regimen for GERD, HLD, Migraines, and osteopenia and follow-up with PMD within 1 week. Discharge Exam - Head Exam Head Exam: ATRAUMATIC, NORMAL INSPECTION - Eye Exam Eye Exam: Normal appearance - ENT Exam ENT Exam: Mucous Membranes Moist - Respiratory Exam Respiratory Exam: UNREMARKABLE. absent: Respiratory Distress - Cardiovascular Exam Cardiovascular Exam: REGULAR RHYTHM - GI/Abdominal Exam GI & Abdominal Exam: Unremarkable - Extremities Exam Extremities exam: normal inspection - Neurological Exam Neurological exam: Alert, CN II-XII Intact, Normal Gait, Oriented x3 - Psychiatric Exam Psychiatric exam: Normal Affect, Normal Mood - Skin Skin Exam: Dry, Intact, Normal Color, Warm Discharge Plan - Follow Up Plan Condition: STABLE Disposition: HOME/ ROUTINE Additional Instructions: follow up with PMD within 1 week <Avery Laureano - Last Filed: 01/27/19 13:13> Provider - Provider Date of Admission: 01/26/19 09:05 Attending physician: Avery Laureano MD Consults: 01/26/19 09:06 Neurology Consult Stat Comment: Consulting Provider: Albin Frank Consulting Physician: Albin Frank Reason for Consult: L hand numbness, tongue heaviness Hospital Course - Lab Results Lab Results: Most Recent Lab Values WBC 3.2 K/uL (4.8-10.8) L 01/27/19 04:30 RBC 4.31 Mil/uL (3.80-5.20) 01/27/19 04:30 Hgb 12.6 g/dL (12.0-16.0) 01/27/19 04:30 Hct 38.5 % (34.0-47.0) 01/27/19 04:30 MCV 89.2 fl (81.0-99.0) 01/27/19 04:30 MCH 29.3 pg (27.0-31.0) 01/27/19 04:30 MCHC 32.8 g/dL (33.0-37.0) L 01/27/19 04:30 RDW 13.8 % (11.5-14.5) 01/27/19 04:30 Plt Count 259 K/uL (130-400) 01/27/19 04:30 MPV 8.2 fl (7.2-11.7) 01/27/19 04:30 Neut % (Auto) 27.2 % (50.0-75.0) L 01/27/19 04:30 Lymph % (Auto) 56.4 % (20.0-40.0) H 01/27/19 04:30 [place] % (Auto) 12.5 % (0.0-10.0) H 01/27/19 04:30 Eos % (Auto) 3.2 % (0.0-4.0) 01/27/19 04:30 Baso % (Auto) 0.7 % (0.0-2.0) 01/27/19 04:30 Neut # (Auto) 0.9 K/uL (1.8-7.0) L 01/27/19 04:30 Lymph # (Auto) 1.8 K/uL (1.0-4.3) 01/27/19 04:30 [place] # (Auto) 0.4 K/uL (0.0-0.8) 01/27/19 04:30 Eos # (Auto) 0.1 K/uL (0.0-0.7) 01/27/19 04:30 Baso # (Auto) 0.0 K/uL (0.0-0.2) 01/27/19 04:30 PT 10.9 Seconds (9.8-13.1) 01/26/19 08:00 INR 1.0 01/26/19 08:00 APTT 33.5 Seconds (25.6-37.1) 01/26/19 08:00 Sodium 137 mmol/l (132-148) 01/27/19 04:30 Potassium 4.2 MMOL/L (3.6-5.0) 01/27/19 04:30 Chloride 101 mmol/L (98-107) 01/27/19 04:30 Carbon Dioxide 26 mmol/L (22-30) 01/27/19 04:30 Anion Gap 14 (10-20) 01/27/19 04:30 BUN 23 mg/dl (7-17) H 01/27/19 04:30 Creatinine 0.7 mg/dl (0.7-1.2) 01/27/19 04:30 Est GFR ( Amer) > 60 01/27/19 04:30 Est GFR (Non-Af Amer) > 60 01/27/19 04:30 POC Glucose (mg/dL) 100 mg/dL (65-110) 01/26/19 07:39 Random Glucose 102 mg/dL (65-105) 01/27/19 04:30 Calcium 9.5 mg/dL (8.4-10.2) 01/27/19 04:30 Total Bilirubin 0.4 mg/dl (0.2-1.3) 01/27/19 04:30 AST 31 U/L (14-36) 01/27/19 04:30 ALT 34 U/L (9-52) 01/27/19 04:30 Alkaline Phosphatase 96 U/L (38-126) 01/27/19 04:30 Troponin I < 0.0120 ng/mL (0.00-0.120) 01/26/19 08:00 Total Protein 7.0 G/DL (6.3-8.2) 01/27/19 04:30 Albumin 4.0 g/dL (3.5-5.0) 01/27/19 04:30 Globulin 3.0 gm/dL (2.2-3.9) 01/27/19 04:30 Albumin/Globulin Ratio 1.3 (1.0-2.1) 01/27/19 04:30 Triglycerides 79 mg/DL (0-149) D 01/26/19 08:00 Cholesterol 215 mg/dL (0-199) H 01/26/19 08:00 LDL Cholesterol Direct 110 mg/dL (0-129) 01/26/19 08:00 HDL Cholesterol 72 MG/DL (30-70) H 01/26/19 08:00 Attending/Attestation - Attestation I have personally seen and examined this patient.: Yes I have fully participated in the care of the patient.: Yes I have reviewed all pertinent clinical information, including history, physical exam and plan: Yes Notes (Text): 01/27/19 13:13 Patient seen and examined with resident. Case discussed and agreed with assessment. Patient discharged in stable condition.
[2019-01-27 12:47] VITALS: BP 101/66; PULSE 72; TEMP 98; O2SAT 96
--- NOTE | 2019-01-27 13:58 | CP.PCM.CON ---
History of Present Illness - History of Present Illness History of Present Illness: 58 yr old woman with left arm numbness and tingling, and tongue heaviness. MRI Brain is normal. Neurology consult dictated. A/P: 1. May be discharged home. 2. No further recommendations. Dr. Frank Neurology Past Patient History - Past Medical History & Family History Past Medical History?: Yes - Past Social History Smoking Status: Never Smoked - CARDIAC Hx Hypercholesterolemia: Yes - PULMONARY Hx Respiratory Disorders: No - NEUROLOGICAL Hx Neurological Disorder: No - HEENT Hx HEENT Problems: No - RENAL Hx Chronic Kidney Disease: No - ENDOCRINE/METABOLIC Hx Endocrine Disorders: No - HEMATOLOGICAL/ONCOLOGICAL Hx Blood Disorders: No - INTEGUMENTARY Hx Dermatological Problems: No - MUSCULOSKELETAL/RHEUMATOLOGICAL Hx Osteoporosis: Yes - GASTROINTESTINAL Hx Gastritis: Yes - GENITOURINARY/GYNECOLOGICAL Hx Genitourinary Disorders: No - PSYCHIATRIC Hx Psychophysiologic Disorder: No Hx Substance Use: No - SURGICAL HISTORY Hx Surgeries: Yes Hx Section: Yes (x2) - ANESTHESIA Hx Anesthesia: Yes Hx Anesthesia Reactions: No Hx Malignant Hyperthermia: No Meds Allergies/Adverse Reactions: Allergies Allergy/AdvReac Type Severity Reaction Status Date / Time ampicillin Allergy RASH Verified 08/22/18 21:37 Penicillins Allergy RASH Verified 08/22/18 21:37 - Medications Medications: Current Medications Amitriptyline HCl (Elavil) 10 mg PO HS [facility] Last Admin: 01/26/19 21:43 Dose: 10 mg Aspirin (Aspirin Chewable) 81 mg PO DAILY [facility] Last Admin: 01/27/19 08:43 Dose: 81 mg Atorvastatin Calcium (Lipitor) 20 mg PO HS [facility] Last Admin: 01/26/19 21:43 Dose: 20 mg Docusate Sodium (Colace) 100 mg PO BID [facility] Last Admin: 01/27/19 08:43 Dose: 100 mg Enoxaparin Sodium (Lovenox) 40 mg SC DAILY [facility]; Protocol Last Admin: 01/27/19 08:44 Dose: 40 mg Pantoprazole Sodium (Protonix Ec Tab) 40 mg PO DAILY [facility] Last Admin: 01/27/19 08:43 Dose: 40 mg Results - Vital Signs Recent Vital Signs: Last Vital Signs Temp 98 F 01/27/19 12:46 Pulse 72 01/27/19 12:46 Resp 20 01/27/19 12:46 BP 101/66 01/27/19 12:46 Pulse Ox 96 04/07/19 12:46 - Labs Result Diagrams: 01/27/19 04:30 01/27/19 04:30 Labs: Laboratory Results - last 24 hr 01/27/19 01/27/19 04:30 04:30 WBC 3.2 L RBC 4.31 Hgb 12.6 Hct 38.5 MCV 89.2 MCH 29.3 MCHC 32.8 L RDW 13.8 Plt Count 259 MPV 8.2 Neut % (Auto) 27.2 L Lymph % (Auto) 56.4 H [place] % (Auto) 12.5 H Eos % (Auto) 3.2 Baso % (Auto) 0.7 Neut # (Auto) 0.9 L Lymph # (Auto) 1.8 [place] # (Auto) 0.4 Eos # (Auto) 0.1 Baso # (Auto) 0.0 Sodium 137 Potassium 4.2 Chloride 101 Carbon Dioxide 26 Anion Gap 14 BUN 23 H Creatinine 0.7 Est GFR ( Amer) > 60 Est GFR (Non-Af Amer) > 60 Random Glucose 102 Calcium 9.5 Total Bilirubin 0.4 AST 31 ALT 34 Alkaline Phosphatase 96 Total Protein 7.0 Albumin 4.0 Globulin 3.0 Albumin/Globulin Ratio 1.3
== END 2019-01-27 14:30 | disposition home or self-care (01) | DRG 425 ==
LOC: H.ER 07:06 → H.ERHOLD 09:05 → H.TEL 11:18
DX: F41.9 Anxiety disorder, unspecified (principal); F41.0 Panic disorder [episodic paroxysmal anxiety]; E78.00 Pure hypercholesterolemia, unspecified; E78.5 Hyperlipidemia, unspecified; G43.909 Migraine, unspecified, not intractable, without status migrainosus; K21.9 Gastro-esophageal reflux disease without esophagitis; M81.0 Age-related osteoporosis without current pathological fracture; Z79.899 Other long term (current) drug therapy; Z82.49 Family history of ischemic heart disease and other diseases of the circulatory system; Z86.73 Personal history of transient ischemic attack (TIA), and cerebral infarction without residual deficits; K29.70 Gastritis, unspecified, without bleeding